=== PATIENT | female | born 1940 | race Caucasian/White ===

== ENCOUNTER → 2018-04-10 11:46 | Outpatient (REF) | payer MEDICARE, SELFPAY ==
[2018-04-10 11:51] LABS: Microscopic, Urine URINE MICROSCOPIC (MICROSCOPIC)
[2018-04-10 13:34] LABS: Appearance,Urine CLEAR (Clear); Bilirubin,Urine Negative (Negative); Blood, Urine Negative (Negative); Color,Urine YELLOW (Yellow); Glucose,Urine (UA) 3+ (Negative); Ketones,Urine Negative (Negative); Leukocyte Esterase,Urine Negative (Negative); Nitrate,Urine Negative (Negative); Protein,Urine Negative (Negative); Specific Gravity, Urine 1.025 (1.005-1.030)
[2018-04-10 14:27] LABS: Bacteria,Urine 4+ /lpf
== END ==
LOC: LAB.CARL 11:46
PROVIDERS: Visit Provider Physician Assistant
DX: R30.9 Painful micturition, unspecified (principal)
CPT/HCPCS: 81001; 87086; 87088; 87186

== ENCOUNTER → 2018-04-29 11:03 | Outpatient (CLI) | payer MEDICARE, SELFPAY ==
[2018-04-29 11:11] LABS: Microscopic, Urine URINE MICROSCOPIC (MICROSCOPIC)
[2018-04-29 14:17] LABS: Appearance,Urine CLEAR (Clear); Bilirubin,Urine Negative (Negative); Blood, Urine TRACE-I (Negative); Color,Urine YELLOW (Yellow); Glucose,Urine (UA) 2+ (Negative); Ketones,Urine Negative (Negative); Leukocyte Esterase,Urine Negative (Negative); Nitrate,Urine Negative (Negative); Protein,Urine Negative (Negative); Urobilinogen,Urine 0.2 EU/dl (0.2)
[2018-04-29 14:55] LABS: Bacteria,Urine Trace /lpf; RBC,Urine Occasional #/hpf (0-3); WBC,Urine Occasional #/hpf (0-3)
== END ==
PROVIDERS: Visit Provider Family Medicine
DX: N39.0 Urinary tract infection, site not specified (principal)
CPT/HCPCS: 81001

== ENCOUNTER → 2020-11-01 07:54 | Outpatient (CLI) | payer MEDICARE, MEDICAID, SELFPAY ==
[2020-11-01 14:30] LABS: Alanine Aminotransferase 16 U/L (12-78); Albumin Level 3.5 g/dl (3.5-5.0); Albumin/Globulin Ratio 1.3 (1.1-1.8); Alkaline Phosphatase 134 U/L (38-126); Anion Gap 8.8 mEq/L (5-15); Aspartate Amino Transferase 20 U/L (14-36); Bilirubin,Total 0.4 mg/dl (0.2-1.3); Blood Urea Nitrogen 26 mg/dl (7-17); Calcium 8.6 mg/dl (8.4-10.2); Carbon Dioxide 29 mmol/L (22.0-30.0); Chloride 104 mmol/L (98-107); Chol/HDL Ratio 2.6 (1-3.5); Cholesterol 161 mg/dl (140-200); Estimated Glomerular Filt Rate 69 ml/min (>60); GFR (African American) 84 ML/MIN (>60); Globulin 2.7 g/dL (1.3-3.2); Glucose 143 mg/dl (74-100); HDL Cholesterol 61 mg/dl (40-60); Potassium 3.8 mmoL/L (3.5-5.1); Sodium 138 mmol/L (136-145); Total Protein,Serum 6.2 g/dl (6.3-8.2); Triglycerides 125 mg/dl (30-150); VLDL Cholesterol 25 mg/dL (0-40)
[2020-11-01 14:41] LABS: Direct LDL Cholesterol 72.78 mg/dL (100-129)
[2020-11-01 15:00] LABS: Thyroid Stimulating Hormone 3.91 uIU/mL (0.465-4.68)
== END ==
PROVIDERS: Visit Provider Nurse Practitioner Family
DX: E11.65 Type 2 diabetes mellitus with hyperglycemia (principal); I10 Essential (primary) hypertension; E04.9 Nontoxic goiter, unspecified; E78.5 Hyperlipidemia, unspecified; Z79.4 Long term (current) use of insulin
CPT/HCPCS: 36415; 80053; 80061; 83036; 84443

== ENCOUNTER → 2020-11-17 07:12 | Outpatient (CLI) | payer MEDICARE, MEDICAID, SELFPAY ==
[2020-11-17 13:19] LABS: Chloride 104 mmol/L (98-107); Potassium 3.4 mmoL/L (3.5-5.1); Sodium 139 mmol/L (136-145)
[2020-11-17 13:22] LABS: Alanine Aminotransferase 14 U/L (12-78); Albumin Level 3.4 g/dl (3.5-5.0); Albumin/Globulin Ratio 1.3 (1.1-1.8); Alkaline Phosphatase 110 U/L (38-126); Anion Gap 8.4 mEq/L (5-15); Aspartate Amino Transferase 17 U/L (14-36); Bilirubin,Total 0.2 mg/dl (0.2-1.3); Blood Urea Nitrogen 28 mg/dl (7-17); Carbon Dioxide 30 mmol/L (22.0-30.0); Estimated Glomerular Filt Rate 61 ml/min (>60); GFR (African American) 73 ML/MIN (>60); Globulin 2.6 g/dL (1.3-3.2)
[2020-11-17 13:23] LABS: Calcium 9.1 mg/dl (8.4-10.2); Glucose 154 mg/dl (74-100)
== END ==
PROVIDERS: Visit Provider Nurse Practitioner Family
DX: E87.6 Hypokalemia (principal)
CPT/HCPCS: 36415; 80053

== ENCOUNTER → 2021-01-09 07:17 | Outpatient (CLI) | payer MEDICARE, MEDICAID, SELFPAY ==
[2021-01-09 14:45] LABS: Alanine Aminotransferase 15 U/L (12-78); Albumin Level 3.1 g/dl (3.5-5.0); Albumin/Globulin Ratio 1.2 (1.1-1.8); Alkaline Phosphatase 85 U/L (38-126); Anion Gap 8.6 mEq/L (5-15); Aspartate Amino Transferase 17 U/L (14-36); Bilirubin,Total 0.3 mg/dl (0.2-1.3); Blood Urea Nitrogen 19 mg/dl (7-17); Calcium 8.8 mg/dl (8.4-10.2); Carbon Dioxide 32 mmol/L (22.0-30.0); Chloride 103 mmol/L (98-107); Chol/HDL Ratio 2.4 (1-3.5); Cholesterol 133 mg/dl (140-200); Estimated Glomerular Filt Rate 69 ml/min (>60); GFR (African American) 84 ML/MIN (>60); Globulin 2.5 g/dL (1.3-3.2); Glucose 122 mg/dl (74-100); HDL Cholesterol 55 mg/dl (40-60); Potassium 3.6 mmoL/L (3.5-5.1); Sodium 140 mmol/L (136-145); Total Protein,Serum 5.6 g/dl (6.3-8.2); Triglycerides 101 mg/dl (30-150); VLDL Cholesterol 20 mg/dL (0-40)
[2021-01-09 14:46] LABS: Hemoglobin A1C 9.2 % (4.0-6.0)
[2021-01-09 14:56] LABS: Direct LDL Cholesterol 54.94 mg/dL (100-129)
== END ==
PROVIDERS: Visit Provider Nurse Practitioner Family
DX: I10 Essential (primary) hypertension (principal); E03.9 Hypothyroidism, unspecified; E11.65 Type 2 diabetes mellitus with hyperglycemia; Z79.4 Long term (current) use of insulin
CPT/HCPCS: 36415; 80053; 80061; 83036; 84443

== ENCOUNTER → 2021-04-10 07:03 | Outpatient (CLI) | payer MEDICARE, MEDICAID, SELFPAY ==
[2021-04-10 08:36] LABS: Basophils # 0.1 K/mm3 (0-0.2); Basophils % 0.7 % (0.1-2.0); Eosinophils # 0.3 K/mm3 (0.0-0.4); Eosinophils % 4.4 % (0.1-12.0); Hematocrit 32.8 % (37.0-47.0); Hemoglobin 10.4 g/dL (12.2-16.2); Lymphocytes # 1.6 K/mm3 (0.7-4.5); Lymphocytes % 22.4 % (10-50); Mean Corpuscular HGB Conc 31.8 g/dL (31.8-35.4); Mean Corpuscular Hemoglobin 28.5 pg (27.0-31.2); Mean Corpuscular Volume 89.6 fl (81-99); Mean Platelet Volume 8.1 fl (7.4-10.4); Monocytes # 0.7 K/mm3 (0.1-1.0); Monocytes % 9.5 % (1.7-9.3); Neutrophils # 4.6 K/mm3 (1.8-7.8); Neutrophils % 63.1 % (37.0-80.0); Platelet Count 184 K/mm3 (142-424); Red Blood Count 3.66 M/mm3 (4.20-5.40); Red Cell Distribution Width 14.2 % (11.5-17.5); White Blood Count 7.3 K/mm3 (4.8-10.8)
[2021-04-10 08:54] LABS: Hemoglobin A1C 8.2 % (4.0-6.0)
[2021-04-10 09:20] LABS: Chloride 104 mmol/L (98-107); Potassium 3.3 mmoL/L (3.5-5.1); Sodium 141 mmol/L (136-145)
[2021-04-10 09:22] LABS: Alanine Aminotransferase 9 U/L (12-78); Aspartate Amino Transferase 16 U/L (14-36); Blood Urea Nitrogen 14 mg/dl (7-17); Estimated Glomerular Filt Rate 81 ml/min (>60); GFR (African American) 98 ML/MIN (>60)
[2021-04-10 09:23] LABS: Albumin Level 3.1 g/dl (3.5-5.0); Albumin/Globulin Ratio 1.2 (1.1-1.8); Alkaline Phosphatase 85 U/L (38-126); Anion Gap 12.3 mEq/L (5-15); Carbon Dioxide 28 mmol/L (22.0-30.0); Chol/HDL Ratio 2.7 (1-3.5); Cholesterol 139 mg/dl (140-200); Globulin 2.6 g/dL (1.3-3.2); Glucose 98 mg/dl (74-100); HDL Cholesterol 52 mg/dl (40-60); Total Protein,Serum 5.7 g/dl (6.3-8.2); Triglycerides 117 mg/dl (30-150); VLDL Cholesterol 23 mg/dL (0-40)
[2021-04-10 09:29] LABS: Bilirubin,Total 0.1 mg/dl (0.2-1.3)
[2021-04-10 09:34] LABS: Direct LDL Cholesterol 57.59 mg/dL (100-129)
[2021-04-10 09:53] LABS: Thyroid Stimulating Hormone 3.45 uIU/mL (0.465-4.68)
== END ==
PROVIDERS: Visit Provider Nurse Practitioner Family
DX: I10 Essential (primary) hypertension (principal); E11.65 Type 2 diabetes mellitus with hyperglycemia; E03.9 Hypothyroidism, unspecified; E78.5 Hyperlipidemia, unspecified; Z79.4 Long term (current) use of insulin
CPT/HCPCS: 36415; 80053; 80061; 83036; 84443; 85025

== ENCOUNTER → 2021-06-27 07:24 | Outpatient (CLI) | payer MEDICARE, MEDICAID, SELFPAY ==
[2021-06-27 13:59] LABS: Alanine Aminotransferase 11 U/L (12-78); Albumin Level 3.3 g/dl (3.5-5.0); Albumin/Globulin Ratio 1.3 (1.1-1.8); Alkaline Phosphatase 73 U/L (38-126); Anion Gap 6.5 mEq/L (5-15); Aspartate Amino Transferase 16 U/L (14-36); Bilirubin,Total 0.2 mg/dl (0.2-1.3); Blood Urea Nitrogen 22 mg/dl (7-17); Calcium 9.2 mg/dl (8.4-10.2); Carbon Dioxide 31 mmol/L (22.0-30.0); Chloride 105 mmol/L (98-107); Cholesterol 127 mg/dl (140-200); Estimated Glomerular Filt Rate 60 ml/min (>60); GFR (African American) 73 ML/MIN (>60); Globulin 2.5 g/dL (1.3-3.2); Glucose 103 mg/dl (74-100); HDL Cholesterol 43 mg/dl (40-60); Potassium 3.5 mmoL/L (3.5-5.1); Sodium 139 mmol/L (136-145); Total Protein,Serum 5.8 g/dl (6.3-8.2); Triglycerides 121 mg/dl (30-150); VLDL Cholesterol 24 mg/dL (0-40)
[2021-06-27 14:03] LABS: Basophils # 0.1 K/mm3 (0-0.2); Basophils % 0.8 % (0.1-2.0); Eosinophils # 0.3 K/mm3 (0.0-0.4); Eosinophils % 5.2 % (0.1-12.0); Hematocrit 33.2 % (37.0-47.0); Hemoglobin 10.6 g/dL (12.2-16.2); Lymphocytes # 1.9 K/mm3 (0.7-4.5); Lymphocytes % 29.5 % (10-50); Mean Corpuscular Hemoglobin 28.3 pg (27.0-31.2); Mean Corpuscular Volume 88.4 fl (81-99); Mean Platelet Volume 8.9 fl (7.4-10.4); Monocytes # 0.6 K/mm3 (0.1-1.0); Monocytes % 9.7 % (1.7-9.3); Neutrophils # 3.5 K/mm3 (1.8-7.8); Neutrophils % 54.8 % (37.0-80.0); Platelet Count 201 K/mm3 (142-424); Red Blood Count 3.75 M/mm3 (4.20-5.40); Red Cell Distribution Width 15.2 % (11.5-17.5); White Blood Count 6.4 K/mm3 (4.8-10.8)
[2021-06-27 14:09] LABS: Direct LDL Cholesterol 60.41 mg/dL (100-129)
[2021-06-27 14:28] LABS: Thyroid Stimulating Hormone 2.44 uIU/mL (0.465-4.68)
[2021-06-27 14:40] LABS: Hemoglobin A1C 8.7 % (4.0-6.0)
== END ==
PROVIDERS: Visit Provider Nurse Practitioner Family
DX: I10 Essential (primary) hypertension (principal); Z79.899 Other long term (current) drug therapy
CPT/HCPCS: 36415; 80053; 80061; 83036; 84443; 85025

== ENCOUNTER 2024-02-05 10:12 | Inpatient (IN) | payer MEDICARE, MEDICAID, SELFPAY ==
[2024-02-05] VITALS (21 sets, daily range): BP systolic 91–131; BP diastolic 42–70; PULSE 91–920; RESP 14–24; TEMP 36.6–36.7; O2SAT 90–98; BMI 19.4; BMI 17.5
--- NOTE | 2024-02-05 10:14 | ECG_ITS ---
APPROVED REPORT Exam: Resting ECG HR:178 bpm ECG Measurements Heart Rate 178 AXES QRSd 85 QRS 28 QT 259 T 185 QTc 353 Conclusion ATRIAL FIBRILLATION WITH RAPID VENTRICULAR RESPONSE ST DEVIATION AND MODERATE T-WAVE ABNORMALITY, CONSIDER LATERAL ISCHEMIA [-0.1+ mV T-WAVE IN I/aVL/V5/V6] CRITICAL TEST RESULT Atrial fibrillation with rapid ventricular response versus supraventricular tachycardia, ischemia in the lateral and inferior leads, no ST elevation in anatomical contiguous leads. Electronically signed by : JUAN M JEFFERSON, 02/07/2024 23:27:14
--- NOTE | 2024-02-05 10:18 | HMH.EDGENADL ---
Discharge Plan Disposition Patient Disposition: Admitted Clinical Impressions Clinical Impression: Sepsis, Hyperosmolar hyperglycemic state (HHS) Discharge ED Provider: Aren Gomez Adult HPI General Chief complaint: Arrhythmia/Palpitations Stated complaint: Hypotension Time Seen by Provider: 02/05/24 10:17 History of Present Illness HPI narrative: Patient presents with altered mental status, hypoglycemia, presents from senior living. Additional history unable to be obtained due to reported history of dementia. No previous therapies prior to arrival. Medical history largely unknown at this time. Unknown if any changes in medications or new medications. Symptoms reportedly started within the past 24 hours. Please note that above description of symptoms, in this electronic medical record under categorization of recalled from ER triage doctor by RN are reflective of an initial nursing assessment, however, is not reflective of my full history and physical exam that was personally taken and clarified. Consequentially, this preceding description of symptoms, which may include the patient's categorized chief complaint in the EMR, do not reflect my personal clinical impression, and the ultimate description of history of present illness and patient stated complaints should be deferred to this section of the note. Unless stated otherwise or congruent with this section of the note, additional signs, symptoms, or incongruence should be interpreted as inaccurate with my clinical impression. Related Data Home Medications ?Medication ?Instructions ?Recorded ?Confirmed acetaminophen 500 mg tablet 500 mg PO Q4HP PRN Mild Pain 02/05/24 02/06/24 (Scale Score 1-4) amlodipine 10 mg tablet 10 mg PO DAILY 02/05/24 02/05/24 donepezil 5 mg tablet 5 mg PO HS 02/05/24 02/06/24 escitalopram oxalate 20 mg tablet 20 mg PO DAILY 02/05/24 02/05/24 famotidine 40 mg tablet 40 mg PO HS 02/05/24 02/05/24 furosemide 20 mg tablet 20 mg PO DAILY 02/05/24 02/05/24 levothyroxine 75 mcg tablet 75 mcg PO DAILY 02/05/24 02/05/24 linagliptin 5 mg tablet (Tradjenta) 5 mg PO DAILY 02/05/24 02/05/24 lisinopril 40 mg tablet 40 mg PO DAILY 02/05/24 02/05/24 loratadine 10 mg tablet 10 mg PO DAILY 02/05/24 02/05/24 memantine 10 mg tablet 10 mg PO BID 02/05/24 02/05/24 metformin 500 mg tablet 500 mg PO BID 02/05/24 02/05/24 metoprolol tartrate 25 mg tablet 25 mg PO BID 02/05/24 02/05/24 omeprazole 20 mg capsule,delayed 20 mg PO BID gerd 02/05/24 02/05/24 release quetiapine 25 mg tablet 12.5 mg PO BID 02/05/24 02/05/24 simvastatin 20 mg tablet 20 mg PO HS 02/05/24 02/05/24 Allergies Allergy/AdvReac Type Severity Reaction Status Date / Time No Known Allergies Allergy Unverified 06/04/17 14:59 [facility] Disclaimer: The information contained in this section may have been updated after the patient was seen, as this information can be updated by other users. Medical History (Updated 02/06/24 @ 13:38 by Radha Garrett RN) Hemorrhoids GERD (gastroesophageal reflux disease) Essential hypertension Major depressive disorder Hyperlipidemia Hypothyroidism Foot drop, right Chronic kidney disease Cerebrovascular disease Dementia DKA (diabetic ketoacidosis) Diabetes mellitus Hiatal hernia Acute kidney injury Sepsis Atrial fibrillation with RVR Non-STEMI (non-ST elevated myocardial infarction) Family History (Updated 02/05/24 @ 17:51 by Elvia Hendrickson RN) Other No significant family history Social History (Updated 02/05/24 @ 17:52 by Elvia Hendrickson RN) Smoking Status: Never smoker alcohol intake: never current occupational status: other Travel in the last 8 weeks: None ROS Obtained: Yes other As per HPI Physical Exam General General appearance: lethargic Comment: Ill-appearing Head Head exam: atraumatic and normocephalic Eye Eye exam: Present normal appearance Neck Neck exam: Present normal inspection Chest Chest inspection: Present normal inspection and symmetric chest wall rise Respiratory Respiratory exam: Present normal lung sounds bilaterally; Absent respiratory distress Cardiovascular Cardiovascular exam: Present tachycardia and irregular rhythm Abdominal Exam Abdominal exam: Present soft Neurological Exam Neurological exam: Present other (Disoriented, no focal neurologic deficit) Skin Skin exam: Present warm and dry Medical Decision Making Medical Records Medical records reviewed: Yes I reviewed the patient's medical records. Nitish Inquiry Pt receiving controlled substance: No Vital Signs: 02/05/24 10:13 02/05/24 11:05 02/05/24 11:30 Temperature 97.9 F Temperature Source Oral Pulse Rate 111 H Pulse Rate [Radial] 119 H Respiratory Rate 20 24 22 Blood Pressure 98/60 L 98/56 L Blood Pressure [Right Arm] 92/63 L Blood Pressure Mean 66 63 Blood Pressure Mean [Right Arm] 72 Blood Pressure Source Blood Pressure Source [Right Arm] Automatic Cuff Blood Pressure Position Blood Pressure Position [Right Arm] Supine 02 Sat by Pulse Oximetry 94 L 90 L Oxygen Delivery Method Room Air 02/05/24 12:00 02/05/24 12:30 02/05/24 13:21 Temperature Temperature Source Pulse Rate Pulse Rate [Radial] Respiratory Rate 22 22 16 Blood Pressure 110/58 L 100/59 L 98/58 L Blood Pressure [Right Arm] Blood Pressure Mean 74 Blood Pressure Mean [Right Arm] Blood Pressure Source Blood Pressure Source [Right Arm] Blood Pressure Position Blood Pressure Position [Right Arm] 02 Sat by Pulse Oximetry Oxygen Delivery Method 02/05/24 13:30 02/05/24 14:00 02/05/24 14:30 Temperature Temperature Source Pulse Rate Pulse Rate [Radial] Respiratory Rate 22 23 24 Blood Pressure 102/60 L 114/57 L 113/54 L Blood Pressure [Right Arm] Blood Pressure Mean Blood Pressure Mean [Right Arm] Blood Pressure Source Blood Pressure Source [Right Arm] Blood Pressure Position Blood Pressure Position [Right Arm] 02 Sat by Pulse Oximetry Oxygen Delivery Method 02/05/24 15:00 02/05/24 15:30 02/05/24 16:00 Temperature Temperature Source Pulse Rate Pulse Rate [Radial] Respiratory Rate 21 19 19 Blood Pressure 104/57 L 96/59 L 109/62 L Blood Pressure [Right Arm] Blood Pressure Mean Blood Pressure Mean [Right Arm] Blood Pressure Source Blood Pressure Source [Right Arm] Blood Pressure Position Blood Pressure Position [Right Arm] 02 Sat by Pulse Oximetry Oxygen Delivery Method 02/05/24 16:30 02/05/24 17:00 02/05/24 17:00 Temperature 98.0 F Temperature Source Axillary Pulse Rate Pulse Rate [Radial] 95 H Respiratory Rate 17 22 Blood Pressure 99/57 L Blood Pressure [Right Arm] 119/70 Blood Pressure Mean Blood Pressure Mean [Right Arm] 86 Blood Pressure Source Blood Pressure Source [Right Arm] Automatic Cuff Blood Pressure Position Blood Pressure Position [Right Arm] Supine 02 Sat by Pulse Oximetry 94 L Oxygen Delivery Method Room Air Room Air 08/21/24 17:01 Temperature 97.9 F Temperature Source Oral Pulse Rate 103 H Pulse Rate [Radial] Respiratory Rate 20 Blood Pressure 99/57 L Blood Pressure [Right Arm] Blood Pressure Mean Blood Pressure Mean [Right Arm] Blood Pressure Source Automatic Cuff Blood Pressure Source [Right Arm] Blood Pressure Position Supine Blood Pressure Position [Right Arm] 02 Sat by Pulse Oximetry Oxygen Delivery Method Room Air Lab Data Lab Results 02/05/24 10:28: WBC 16.7 H, RBC 4.84, Hgb 14.5, Hct 49.0 H, MCV 101.2 H, MCH 29.9, MCHC 29.6 L, RDW 15.0, Plt Count 287, MPV 8.9, Neut % (Auto) 82.5 H, Lymph % (Auto) 9.7 L, [place] % (Auto) 7.0, Eos % (Auto) 0.2, Baso % (Auto) 0.6, Neut # (Auto) 13.7 H, Lymph # (Auto) 1.6, [place] # (Auto) 1.2 H, Eos # (Auto) 0.0, Baso # (Auto) 0.1, Total Counted 100, Neutrophils % (Manual) 79 H, Lymphocytes % (Manual) 10, Monocytes % (Manual) 9, Eosinophils % (Manual) 1, Basophils % (Manual) 1.0, Platelet Estimate Normal, RBC Morphology Normal, PT 10.9, INR 0.97, Sodium 150 H, Potassium 3.8, Chloride 110 H, Carbon Dioxide 24, Anion Gap 19.8 H, BUN 71 H, Creatinine 3.00 H, Estimated Creat Clear 10, Estimated GFR 15 L*, Est GFR ( Amer) 18 L*, Glucose 858 H*, Calcium 9.2, Phosphorus 7.2 H, Magnesium 2.2, Total Bilirubin 0.8, AST 24, ALT 27, Alkaline Phosphatase 106, Troponin I 0.20 H, NT-Pro-B Natriuret Pep 1170 H, Total Protein 7.3 D, Albumin 4.3, Globulin 3.0, Albumin/Globulin Ratio 1.4, TSH 0.46 L, Free T4 2.05, Acetone Level Small 02/05/24 10:36: VBG pH 7.34, VBG pCO2 46.0, VBG pO2 79.0 H, VBG HCO3 24.5, VBG Total CO2 25.9, VBG O2 Saturation 93.9 H, VBG Base Excess -1.2, VBG Lactic Acid 4.1 H 02/05/24 13:29: Total Creatine Kinase 81, Troponin I 0.69 H 02/05/24 15:07: Lactate 1.5 02/05/24 15:14: Urine Color Yellow, Urine Appearance Clear, Urine pH 5.5, Ur Specific [place] 1.020, Urine Protein Negative, Urine Glucose (UA) 3+, Urine Ketones Trace, Urine Blood 1+, Urine Nitrate Negative, Urine Bilirubin Negative, Urine Urobilinogen 0.2, Ur Leukocyte Esterase Negative, Urine RBC 20-50, Urine WBC 50-100, Ur Squamous Epith Cells 20-50, Urine Bacteria 3+ 02/05/24 15:32: Sodium 151 H*, Potassium 3.5, Chloride 115 H, Carbon Dioxide 25, Anion Gap 14.5, BUN 74 H, Creatinine 2.90 H, Estimated Creat Clear 11, Estimated GFR 16 L*, Est GFR ( Amer) 19 L*, Glucose 719 H*, Calcium 8.7 02/05/24 17:01: POC Glucose 543 H* 02/06/24 05:18 02/06/24 19:39 Orders (Tests/Meds): ED MEDICATIONS Generic Name Dose Route Start Last Admin Trade Name Freq PRN Reason Stop Dose Admin Acetaminophen 650 mg 02/05/24 18:02 Acetaminophen 325mg Tab PO 03/06/24 18:01 Q6HP PRN Fever or Mild Pain (1-3) Acetaminophen 500 mg 02/06/24 13:02 Acetaminophen 500mg Tab PO 03/07/24 13:01 Q4HP PRN Mild Pain (Scale Score 1-4) Albuterol/Ipratropium 3 ml 02/05/24 18:02 Ipratropium/Albuterol 3 Ml Neb IH 03/06/24 18:01 Q6HP PRN Shortness Of Breath Amlodipine Besylate 10 mg 02/06/24 13:15 02/06/24 14:50 Amlodipine 10mg Tablet PO 03/07/24 13:14 Not Given DAILY ADAM Aspirin 81 mg 02/06/24 09:00 02/06/24 09:04 Aspirin Ec 81mg Tablet PO 03/07/24 08:59 81 mg DAILY ADAM Administration Atorvastatin Calcium 40 mg 02/05/24 21:00 02/05/24 20:11 Atorvastatin 40mg Tablet PO 03/06/24 20:59 Not Given HS ADAM Citalopram Hydrobromide 40 mg 02/06/24 13:15 02/06/24 14:42 Citalopram 40mg Tablet PO 03/07/24 13:14 40 mg DAILY ADAM Administration Donepezil HCl 5 mg 02/06/24 21:00 Donepezil 5mg Tab PO 03/07/24 20:59 HS ADAM Enoxaparin Sodium 45 mg 02/05/24 21:00 02/05/24 20:14 Enoxaparin 60mg/0.6ml Syringe SQ 03/06/24 20:59 45 mg Q24H ADAM Administration Famotidine 20 mg 02/06/24 21:00 Famotidine 20mg Tablet PO 03/07/24 20:59 HS ADAM Furosemide 20 mg 02/06/24 13:15 02/06/24 14:42 Furosemide 20mg Tablet PO 03/07/24 13:14 20 mg DAILY ADAM Administration Meropenem 1 gm/ Sodium 100 mls @ 100 mls/hr 02/05/24 18:30 02/06/24 17:27 Chloride IV 02/15/24 18:29 100 mls/hr Q8H ADAM Administration Insulin Glargine 10 unit 02/06/24 21:00 Insulin Glargine 100 Units/Ml 3ml Flexpen SQ 03/07/24 20:59 HS ADAM Insulin Glargine 10 unit 02/07/24 09:00 Insulin Glargine 100 Units/Ml 3ml Flexpen SQ 03/08/24 08:59 DAILY ADAM Insulin Human Lispro 0 unit 02/06/24 16:30 02/06/24 16:26 Humalog 100 Units/Ml 10ml Vial (Ssi) SQ 03/07/24 16:29 4 unit ACHS ADAM Administration Protocol Levothyroxine Sodium 75 mcg 02/06/24 13:15 02/06/24 14:43 Levothyroxine 75mcg (0.075mg) Tab PO 03/07/24 13:14 75 mcg DAILYDM ADAM Administration Lisinopril 40 mg 02/07/24 09:00 Lisinopril 20mg Tablet PO 03/08/24 08:59 DAILY ADAM Loratadine 10 mg 02/06/24 13:15 02/06/24 14:43 Loratadine 10mg Tablet PO 03/07/24 13:14 10 mg DAILY ADAM Administration Lorazepam 1 mg 02/05/24 18:02 Lorazepam 2mg/Ml Vial IV 03/06/24 18:01 Q4HP PRN Agitation Magnesium Hydroxide 30 ml 02/05/24 18:02 Milk Of Magnesia 30ml Udc PO 03/06/24 18:01 BIDP PRN Constipation Memantine 10 mg 02/06/24 13:15 02/06/24 14:43 Memantine 10mg Tablet PO 03/07/24 13:14 10 mg BID ADAM Administration Metoprolol Tartrate 25 mg 02/06/24 13:15 02/06/24 14:43 Metoprolol Tartrate 25mg Tablet PO 03/07/24 13:14 25 mg BID ADAM Administration Morphine Sulfate 2 mg 02/05/24 18:02 Morphine 2mg/Ml Syringe IV 03/06/24 18:01 Q4HP PRN Severe Pain (7-10) Ondansetron HCl 4 mg 02/05/24 18:02 Ondansetron 4mg/2ml Vial IV 03/06/24 18:01 Q6HP PRN Nausea Pantoprazole Sodium 40 mg 02/06/24 13:15 02/06/24 14:43 Pantoprazole 40mg Tablet PO 03/07/24 13:14 40 mg BID ADAM Administration Pravastatin Sodium 40 mg 02/06/24 21:00 Pravastatin 40mg Tab PO 03/07/24 20:59 HS ADAM Quetiapine Fumarate 12.5 mg 02/06/24 13:15 02/06/24 14:45 Quetiapine 25mg Tablet PO 03/07/24 13:14 12.5 mg BID ADAM Administration Sodium Chloride 10 ml 02/05/24 17:59 Sodium Chloride 0.9% 10ml Flush Syringe IV 03/06/24 17:58 NEEDED PRN Maintain IV Site Sodium Chloride 10 ml 02/05/24 22:34 Sodium Chloride 0.9% 10ml Flush Syringe IV 03/06/24 22:33 NEEDED PRN Maintain IV Site Discontinued Medications Generic Name Dose Route Start Last Admin Trade Name Freq PRN Reason Stop Dose Admin Aspirin 300 mg 02/05/24 14:31 02/05/24 16:39 Aspirin 300mg Suppository RC 08/21/24 14:32 300 mg ONCE ONE Administration Lactated Ringer's 1,350 mls @ 675 mls/hr 02/05/24 10:55 02/05/24 10:58 Lactated Ringer's 1000 Ml Bag 30 ml/kg infuse over 2 hr (1350 ml) 02/05/24 12:54 675 mls/hr IV Administration .Q2H ONE Vancomycin HCl 750 mg/ Sodium 250 mls @ 125 mls/hr 02/05/24 11:21 02/05/24 13:06 Chloride IV 02/05/24 11:22 125 mls/hr ONCE ONE Administration Piperacillin Sod/Tazobactam 100 mls @ 200 mls/hr 02/05/24 11:21 02/05/24 11:45 Sod 4.5 gm/ Sodium Chloride IV 02/05/24 11:50 200 mls/hr ONCE ONE Administration Insulin Human Regular 100 unit 101 mls @ 4.553 mls/hr 02/05/24 15:15 02/06/24 00:21 / Sodium Chloride IV 03/06/24 15:14 0 units/kg/hr .[id number] ADAM 0 mls/hr Titration Protocol 0.1 UNITS/KG/HR Lactated Ringer's 1,000 mls @ 150 mls/hr 02/05/24 18:00 02/05/24 18:24 Lactated Ringer's 1000 Ml Bag IV 02/06/24 20:39 150 mls/hr .[id number] ADAM Administration Potassium Chloride/Water 100 mls @ 50 mls/hr 02/05/24 22:00 02/06/24 02:58 Potassium Chloride 20meq/100ml Ivpb IV 02/06/24 03:59 50 mls/hr Q2H ADAM Administration Magnesium Sulfate 2 gm in 50 mls @ 25 mls/hr 02/05/24 22:00 02/05/24 22:04 Magnesium Sulfate 2gm/50ml Premix IV 03/06/24 21:59 25 mls/hr ONCE ADAM Administration Sodium Chloride 1,000 mls @ 75 mls/hr 02/05/24 22:45 02/06/24 18:35 Sod Chlor 0.45% 1000ml Bag IV 03/06/24 22:44 150 mls/hr .[id number] ADAM Administration Insulin Glargine 10 unit 02/06/24 13:04 02/06/24 14:45 Insulin Glargine 100 Units/Ml 10ml Vial SQ 02/06/24 13:05 10 unit ONCE ONE Administration Metoprolol Tartrate 12.5 mg 02/05/24 23:35 02/05/24 23:53 Metoprolol Tartrate 25mg Tablet PO 02/05/24 23:36 12.5 mg ONCE ONE Administration Metoprolol Tartrate 2.5 mg 02/06/24 01:00 02/06/24 00:45 Metoprolol Tartrate 5mg/5ml Vial IV 02/06/24 01:01 2.5 mg ONCE ONE Administration ORDERS Category Date Time Status CT abdomen pelvis wo con Stat Cat Scan 02/05/24 11:[address] chest wo con Stat Cat Scan 02/05/24 11:[address] head/brain wo con Stat Cat Scan 02/05/24 11:15 Completed Acetone, Serum (Rapid) Stat Lab 02/05/24 10:28 Completed BMP [Basic Metabolic Panel] Stat Lab 02/05/24 15:32 Completed BNP [NT Pro Brain Natriuretic Pep.] Stat Lab 02/05/24 10:28 Completed Basic Metabolic Panel AMLAB Lab 02/06/24 05:18 Completed CBC w/Auto Diff [Complete Blood Count Auto Diff] Stat Lab 02/05/24 10:28 Completed CK [Creatine Kinase] Stat Lab 02/05/24 13:29 Completed CMP [Comprehensive Metabolic Panel] Stat Lab 02/05/24 10:28 Completed Complete Blood Count Auto Diff AMLAB Lab 02/06/24 05:18 Completed Free T4 (Free Thyroxine) Stat Lab 02/05/24 10:28 Completed Lactic Acid AMLAB Lab 02/06/24 05:18 Completed Lactic Acid Follow Up (RFLX 1) Stat Lab 02/05/24 15:07 Completed Lipid Panel AMLAB Lab 02/06/24 05:18 Completed Liver Panel AMLAB Lab 02/06/24 05:18 Completed MAG [Magnesium] Stat Lab 02/05/24 10:28 Completed Osmolality Stat Lab 02/05/24 13:29 Received PHOS [Phosphorous] Stat Lab 02/05/24 10:28 Completed PT INR [Prothrombin Time INR] Stat Lab 02/05/24 10:28 Completed TSH [Thyroid Stimulating Hormone] Stat Lab 02/05/24 10:28 Completed Troponin I Q3H Lab 02/05/24 10:28 Completed Troponin I Q3H Lab 02/05/24 13:29 Completed Urinalysis and Microscopic Stat Lab 02/05/24 15:14 Completed Blood Culture Stat Micro 02/05/24 10:50 Results Urine Culture Stat Micro 02/05/24 15:14 Received VBG [Venous Blood Gas] Stat RT 02/05/24 10:36 Completed CA echo doppler complete Stat Y 02/05/24 14:55 Completed Medical Decision Narrative: Patient with history and exam per above presenting for evaluation of altered mental status, hyperglycemia Diagnoses considered include DKA, HHS, ACS, intracranial hemorrhage, electrolyte abnormality, among others ED workup and treatment included: ED MEDICATIONS Generic Name Dose Route Start Last Admin Trade Name Freq PRN Reason Stop Dose Admin Acetaminophen 650 mg 02/05/24 18:02 Acetaminophen 325mg Tab PO 03/06/24 18:01 Q6HP PRN Fever or Mild Pain (1-3) Acetaminophen 500 mg 02/06/24 13:02 Acetaminophen 500mg Tab PO 03/07/24 13:01 Q4HP PRN Mild Pain (Scale Score 1-4) Albuterol/Ipratropium 3 ml 02/05/24 18:02 Ipratropium/Albuterol 3 Ml Neb IH 03/06/24 18:01 Q6HP PRN Shortness Of Breath Amlodipine Besylate 10 mg 02/06/24 13:15 02/06/24 14:50 Amlodipine 10mg Tablet PO 03/07/24 13:14 Not Given DAILY ADAM Aspirin 81 mg 02/06/24 09:00 02/06/24 09:04 Aspirin Ec 81mg Tablet PO 03/07/24 08:59 81 mg DAILY ADAM Administration Atorvastatin Calcium 40 mg 02/05/24 21:00 02/05/24 20:11 Atorvastatin 40mg Tablet PO 03/06/24 20:59 Not Given HS ADAM Citalopram Hydrobromide 40 mg 02/06/24 13:15 02/06/24 14:42 Citalopram 40mg Tablet PO 03/07/24 13:14 40 mg DAILY ADAM Administration Donepezil HCl 5 mg 02/06/24 21:00 Donepezil 5mg Tab PO 03/07/24 20:59 HS ADAM Enoxaparin Sodium 45 mg 08/21/24 21:00 02/05/24 20:14 Enoxaparin 60mg/0.6ml Syringe SQ 03/06/24 20:59 45 mg Q24H ADAM Administration Famotidine 20 mg 02/06/24 21:00 Famotidine 20mg Tablet PO 03/07/24 20:59 HS ADAM Furosemide 20 mg 02/06/24 13:15 02/06/24 14:42 Furosemide 20mg Tablet PO 03/07/24 13:14 20 mg DAILY ADAM Administration Meropenem 1 gm/ Sodium 100 mls @ 100 mls/hr 02/05/24 18:30 02/06/24 17:27 Chloride IV 02/15/24 18:29 100 mls/hr Q8H ADAM Administration Insulin Glargine 10 unit 02/06/24 21:00 Insulin Glargine 100 Units/Ml 3ml Flexpen SQ 03/07/24 20:59 HS ADAM Insulin Glargine 10 unit 02/07/24 09:00 Insulin Glargine 100 Units/Ml 3ml Flexpen SQ 03/08/24 08:59 DAILY ADAM Insulin Human Lispro 0 unit 02/06/24 16:30 02/06/24 16:26 Humalog 100 Units/Ml 10ml Vial (Ssi) SQ 03/07/24 16:29 4 unit ACHS ADAM Administration Protocol Levothyroxine Sodium 75 mcg 02/06/24 13:15 02/06/24 14:43 Levothyroxine 75mcg (0.075mg) Tab PO 03/07/24 13:14 75 mcg DAILYDM ADAM Administration Lisinopril 40 mg 02/07/24 09:00 Lisinopril 20mg Tablet PO 03/08/24 08:59 DAILY ADAM Loratadine 10 mg 02/06/24 13:15 02/06/24 14:43 Loratadine 10mg Tablet PO 03/07/24 13:14 10 mg DAILY ADAM Administration Lorazepam 1 mg 02/05/24 18:02 Lorazepam 2mg/Ml Vial IV 03/06/24 18:01 Q4HP PRN Agitation Magnesium Hydroxide 30 ml 02/05/24 18:02 Milk Of Magnesia 30ml Udc PO 03/06/24 18:01 BIDP PRN Constipation Memantine 10 mg 02/06/24 13:15 02/06/24 14:43 Memantine 10mg Tablet PO 03/07/24 13:14 10 mg BID ADAM Administration Metoprolol Tartrate 25 mg 02/06/24 13:15 02/06/24 14:43 Metoprolol Tartrate 25mg Tablet PO 03/07/24 13:14 25 mg BID ADAM Administration Morphine Sulfate 2 mg 02/05/24 18:02 Morphine 2mg/Ml Syringe IV 03/06/24 18:01 Q4HP PRN Severe Pain (7-10) Ondansetron HCl 4 mg 02/05/24 18:02 Ondansetron 4mg/2ml Vial IV 03/06/24 18:01 Q6HP PRN Nausea Pantoprazole Sodium 40 mg 02/06/24 13:15 02/06/24 14:43 Pantoprazole 40mg Tablet PO 03/07/24 13:14 40 mg BID ADAM Administration Pravastatin Sodium 40 mg 02/06/24 21:00 Pravastatin 40mg Tab PO 03/07/24 20:59 HS ADAM Quetiapine Fumarate 12.5 mg 02/06/24 13:15 02/06/24 14:45 Quetiapine 25mg Tablet PO 03/07/24 13:14 12.5 mg BID ADAM Administration Sodium Chloride 10 ml 02/05/24 17:59 Sodium Chloride 0.9% 10ml Flush Syringe IV 03/06/24 17:58 NEEDED PRN Maintain IV Site Sodium Chloride 10 ml 02/05/24 22:34 Sodium Chloride 0.9% 10ml Flush Syringe IV 03/06/24 22:33 NEEDED PRN Maintain IV Site Discontinued Medications Generic Name Dose Route Start Last Admin Trade Name Kemq PRN Reason Stop Dose Admin Aspirin 300 mg 02/05/24 14:31 02/05/24 16:39 Aspirin 300mg Suppository RC 02/05/24 14:32 300 mg ONCE ONE Administration Lactated Ringer's 1,350 mls @ 675 mls/hr 02/05/24 10:55 02/05/24 10:58 Lactated Ringer's 1000 Ml Bag 30 ml/kg infuse over 2 hr (1350 ml) 02/05/24 12:54 675 mls/hr IV Administration .Q2H ONE Vancomycin HCl 750 mg/ Sodium 250 mls @ 125 mls/hr 02/05/24 11:21 02/05/24 13:06 Chloride IV 02/05/24 11:22 125 mls/hr ONCE ONE Administration Piperacillin Sod/Tazobactam 100 mls @ 200 mls/hr 02/05/24 11:21 02/05/24 11:45 Sod 4.5 gm/ Sodium Chloride IV 02/05/24 11:50 200 mls/hr ONCE ONE Administration Insulin Human Regular 100 unit 101 mls @ 4.553 mls/hr 02/05/24 15:15 02/06/24 00:21 / Sodium Chloride IV 03/06/24 15:14 0 units/kg/hr .[id number] ADAM 0 mls/hr Titration Protocol 0.1 UNITS/KG/HR Lactated Ringer's 1,000 mls @ 150 mls/hr 02/05/24 18:00 02/05/24 18:24 Lactated Ringer's 1000 Ml Bag IV 02/06/24 20:39 150 mls/hr .[id number] ADAM Administration Potassium Chloride/Water 100 mls @ 50 mls/hr 02/05/24 22:00 02/06/24 02:58 Potassium Chloride 20meq/100ml Ivpb IV 02/06/24 03:59 50 mls/hr Q2H ADAM Administration Magnesium Sulfate 2 gm in 50 mls @ 25 mls/hr 02/05/24 22:00 02/05/24 22:04 Magnesium Sulfate 2gm/50ml Premix IV 03/06/24 21:59 25 mls/hr ONCE ADAM Administration Sodium Chloride 1,000 mls @ 75 mls/hr 02/05/24 22:45 02/06/24 18:35 Sod Chlor 0.45% 1000ml Bag IV 03/06/24 22:44 150 mls/hr .[id number] ADAM Administration Insulin Glargine 10 unit 02/06/24 13:04 02/06/24 14:45 Insulin Glargine 100 Units/Ml 10ml Vial SQ 02/06/24 13:05 10 unit ONCE ONE Administration Metoprolol Tartrate 12.5 mg 02/05/24 23:35 02/05/24 23:53 Metoprolol Tartrate 25mg Tablet PO 02/05/24 23:36 12.5 mg ONCE ONE Administration Metoprolol Tartrate 2.5 mg 02/06/24 01:00 02/06/24 00:45 Metoprolol Tartrate 5mg/5ml Vial IV 02/06/24 01:01 2.5 mg ONCE ONE Administration ORDERS Category Date Time Status CT abdomen pelvis wo con Stat Cat Scan 02/05/24 11:[address] chest wo con Stat Cat Scan 02/05/24 11:[address] head/brain wo con Stat Cat Scan 02/05/24 11:15 Completed Acetone, Serum (Rapid) Stat Lab 02/05/24 10:28 Completed BMP [Basic Metabolic Panel] Stat Lab 02/05/24 15:32 Completed BNP [NT Pro Brain Natriuretic Pep.] Stat Lab 02/05/24 10:28 Completed Basic Metabolic Panel AMLAB Lab 02/06/24 05:18 Completed CBC w/Auto Diff [Complete Blood Count Auto Diff] Stat Lab 02/05/24 10:28 Completed CK [Creatine Kinase] Stat Lab 02/05/24 13:29 Completed CMP [Comprehensive Metabolic Panel] Stat Lab 02/05/24 10:28 Completed Complete Blood Count Auto Diff AMLAB Lab 02/06/24 05:18 Completed Free T4 (Free Thyroxine) Stat Lab 02/05/24 10:28 Completed Lactic Acid AMLAB Lab 02/06/24 05:18 Completed Lactic Acid Follow Up (RFLX 1) Stat Lab 02/05/24 15:07 Completed Lipid Panel AMLAB Lab 02/06/24 05:18 Completed Liver Panel AMLAB Lab 02/06/24 05:18 Completed MAG [Magnesium] Stat Lab 02/05/24 10:28 Completed Osmolality Stat Lab 02/05/24 13:29 Received PHOS [Phosphorous] Stat Lab 02/05/24 10:28 Completed PT INR [Prothrombin Time INR] Stat Lab 02/05/24 10:28 Completed TSH [Thyroid Stimulating Hormone] Stat Lab 02/05/24 10:28 Completed Troponin I Q3H Lab 02/05/24 10:28 Completed Troponin I Q3H Lab 02/05/24 13:29 Completed Urinalysis and Microscopic Stat Lab 02/05/24 15:14 Completed Blood Culture Stat Micro 02/05/24 10:50 Results Urine Culture Stat Micro 02/05/24 15:14 Received VBG [Venous Blood Gas] Stat RT 02/05/24 10:36 Completed CA echo doppler complete Stat Y 02/05/24 14:55 Completed Labs were independently interpreted by me, significant for leukocytosis, elevated troponins with uptrending labs, hyperglycemia, anion gap within normal limits, consistent with HHS Imaging was independently visualized and interpreted by me, significant for large esophageal hernia, no acute surgical pathology Please refer to radiology report for full details. My clinical impression at this time is most consistent with HHS given uptrending troponins cardiology was consulted in the emergency department and evaluated patient and will perform radiology performed echo on inpatient basis. In the interim, patient will be admitted to hospital medicine service. Critical Care Critical Care Time Critical Care Time: No
[2024-02-05 10:42] LABS: Basophils # 0.1 K/mm3 (0-0.2); Basophils % 0.6 % (0.1-2.0); Eosinophils % 0.2 % (0.1-12.0); Hemoglobin 14.5 g/dL (12.2-16.2); Lymphocytes # 1.6 K/mm3 (0.7-4.5); Lymphocytes % 9.7 % (10-50); Mean Corpuscular HGB Conc 29.6 g/dL (31.8-35.4); Mean Corpuscular Hemoglobin 29.9 pg (27.0-31.2); Mean Corpuscular Volume 101.2 fl (81-99); Mean Platelet Volume 8.9 fl (7.4-10.4); Monocytes # 1.2 K/mm3 (0.1-1.0); Neutrophils # 13.7 K/mm3 (1.8-7.8); Neutrophils % 82.5 % (37.0-80.0); Platelet Count 287 K/mm3 (142-424); Red Blood Count 4.84 M/mm3 (4.20-5.40); White Blood Count 16.7 K/mm3 (4.8-10.8)
[2024-02-05 10:43] LABS: Albumin Level 4.3 g/dl (3.5-5.0); Chloride 110 mmol/L (98-107)
[2024-02-05 10:44] LABS: Potassium 3.8 mmoL/L (3.5-5.1)
[2024-02-05 10:45] LABS: VBG Base Excess -1.2 mmol/L (-2.4-2.3); VBG HCO3 24.5 mmol/L (23-30); VBG Oxygen Saturation 93.9 % (50-70); VBG PH 7.34 mmol/L (7.31-7.41); VBG Total CO2 25.9 mmol/L (23-27)
[2024-02-05 10:46] LABS: Alanine Aminotransferase 27 U/L (12-78); Aspartate Amino Transferase 24 U/L (14-36); Blood Urea Nitrogen 71 mg/dl (7-17); Creatinine Clearance Estimated 10 mL/min (50-200); Estimated Glomerular Filt Rate 15 ml/min (>60); GFR (African American) 18 ML/MIN (>60)
[2024-02-05 10:47] LABS: Lactate Venous 4.1 mmol/L (0.4-2.0)
[2024-02-05 10:47] LABS: Albumin/Globulin Ratio 1.4 (1.1-1.8); Alkaline Phosphatase 106 U/L (38-126); Anion Gap 19.8 mEq/L (5-15); Bilirubin,Total 0.8 mg/dl (0.2-1.3); Calcium 9.2 mg/dl (8.4-10.2); Carbon Dioxide 24 mmol/L (22.0-30.0); INR 0.97 (0.9-1.1); Magnesium 2.2 mg/dl (1.6-2.3); Prothrombin Time 10.9 seconds (10.1-12.5); Total Protein,Serum 7.3 g/dl (6.3-8.2)
[2024-02-05 10:52] LABS: Sodium 150 mmol/L (136-145)
[2024-02-05 10:56] LABS: Glucose 858 mg/dl (74-100)
--- NOTE | 2024-02-05 10:56 | PC.NURSE ---
Dr. Gomez notified of Sodium level of 150.
[2024-02-05] MEDS: LACTATED RINGERS 675 ML IV (10:58)
[2024-02-05 11:02] LABS: Acetone, Serum (Rapid) Small (None Detect)
[2024-02-05 11:06] LABS: Phosphorous 7.2 mg/dl (2.5-4.5)
--- NOTE | 2024-02-05 11:15 | CT_ITS ---
FINAL REPORT TECHNIQUE: Axial CT images were performed through the head. Coronal reformatted images were submitted. This study was performed with techniques to keep radiation doses as low as reasonably achievable (ALARA). Individualized dose reduction techniques using automated exposure control or adjustment of mA and/or kV according to the patient's size were employed. CLINICAL HISTORY: ams limited hx FINDINGS: There is moderate atrophy with proportional ventriculomegaly. There is no evidence of hemorrhage. There is no mass or edema identified. There is no abnormal extra-axial fluid seen. The sinuses are well aerated. IMPRESSION: Atrophy without acute intracranial process. Reviewed, Interpreted and Dictated by Dick Siu MD Transcribed by Corine Guerra Authenticated and [facility]
[2024-02-05 11:18] LABS: Thyroid Stimulating Hormone 0.46 uIU/mL (0.465-4.68)
--- NOTE | 2024-02-05 11:29 | CT_ITS ---
FINAL REPORT TECHNIQUE: Axial images were obtained from the lung apex to the mid abdomen by computed tomography. Coronal reformatted images were obtained. This study was performed with techniques to keep radiation doses as low as reasonably achievable, (ALARA). Individualized dose reduction techniques using automated exposure control or adjustment of mA and/or kV according to the patient''s size were employed. CLINICAL HISTORY: ams, sepsis, hhs limited hx COMPARISON: None FINDINGS: The patient is kyphotic, best seen on the sagittal reconstruction images. There is no axillary adenopathy. There is no hilar or mediastinal adenopathy. Heart size is normal. There are dense vascular calcifications of the aortic arch. Large hiatal hernia is noted with sliding and paraesophageal component. There is no pericardial or pleural effusion. No suspicious infiltrate or nodule is identified. IMPRESSION: Large sliding and paraesophageal hernia. Reviewed, Interpreted and Dictated by Dick Siu MD Transcribed by Sdae Martinez Authenticated and . [facility]
--- NOTE | 2024-02-05 11:29 | CT_ITS ---
FINAL REPORT TECHNIQUE: Axial images through the abdomen and pelvis were performed without contrast. This study was performed with techniques to keep radiation doses as low as reasonably achievable, (ALARA). Individualized dose reduction techniques using automated exposure control or adjustment of mA and/or kV according to the patient's size were employed. CLINICAL HISTORY: ams, sepsis COMPARISON: None FINDINGS: Abdomen: The liver parenchyma is homogeneous. The gallbladder is present. The spleen and pancreas are unremarkable. Periampullary duodenal diverticulum is noted. There is a left adrenal adenoma measuring 11 mm. There is a 2 cm low-attenuation focus in the periphery of the left kidney demonstrating mean attenuation value of 17 Hounsfield units. This focus is well-circumscribed. Pelvis: The uterus is present and lies eccentric to the right. A Estrada catheter is present within a decompressed urinary bladder. The appendix is not visualized. There is no pelvic mass or inflammation. IMPRESSION: 2 cm focus in the right kidney probably related to complex benign cyst. Pre and post infusion evaluation could better characterize. Periampullary duodenal diverticulum. Reviewed, Interpreted and Dictated by Dick Siu MD Transcribed by Sade Martinez Authenticated and [facility]
[2024-02-05] MEDS: PIPERACILLIN/TAZO 4.5 GM in 0.9 % SODIUM CHLORIDE 100 ML IV (11:45)
[2024-02-05 11:49] LABS: NT Pro Brain Natriuretic Pep. 1170 pg/mL (0-450)
[2024-02-05 11:53] LABS: MANUAL DIFFERENTIAL MANUAL DIFFERENTIAL (MANUAL DIFF)
[2024-02-05 12:12] LABS: Free T4 (Free Thyroxine) 2.05 ng/dl (0.78-2.19)
[2024-02-05] MEDS: VANCOMYCIN HCL 750 MG in 0.9 % SODIUM CHLORIDE 250 ML 125 MG IV (13:06)
[2024-02-05 13:13] LABS: Eosinophils % 1 % (0-3); Lymphocytes % 10 % (10-50); Monocytes % 9 % (2-9); Neutrophils % 79 % (42-76); Total Cells Counted 100
[2024-02-05 13:14] LABS: Platelet Estimate Normal; RBC Morphology Normal
[2024-02-05 14:03] LABS: Troponin I 0.69 ng/ml (0.00-0.034)
--- NOTE | 2024-02-05 14:15 | PC.NURSE ---
aware of trop 0.69
--- NOTE | 2024-02-05 14:21 | ECG_ITS ---
APPROVED REPORT Exam: Resting ECG HR:101 bpm ECG Measurements Heart Rate 101 AXES MI 98 P 47 QRSd 74 QRS -34 QT 359 T 116 QTc 417 Conclusion LEFT AXIS DEVIATION [QRS AXIS < -30] POSSIBLE ANTERIOR MYOCARDIAL INFARCTION , PROBABLY OLD [30 ms Q WAVE IN V3/V4, OR R < 0.2 mV IN V4] MODERATE T-WAVE ABNORMALITY, CONSIDER LATERAL ISCHEMIA [-0.1+ mV T-WAVE IN I/aVL/V5/V6] ABNORMAL ECG Electronically signed by : JUAN M JEFFERSON, 02/07/2024 23:23:07
[2024-02-05 14:46] LABS: Reflex Lactic Add Lactic Reflex
--- NOTE | 2024-02-05 14:55 | CA_ITS ---
APPROVED REPORT EXAM: Comprehensive 2D, Doppler, and color-flow Echocardiogram [employer] Operator: Cassia Curtis CRT Ht: 5 ft 0 in Wt: 99lbs BSA: 1.38 BP: 104/57 mmHg Indications: Non STEMI, DM, AFIB, DKA TDE LIMITED WINDOWS, BODY HABITUS 2D Dimensions Left Atrium 2.06 cm EF AP4 49.10 % LVOT 1.68 cm (M/F) 1.5-2.5 GL Strain -9.0 % M-Mode Dimensions RVDd 1.18 cm (0.9-2.6) LVDd 3.14 cm (3.5-5.7) Ao Diam 3.36 cm (2.0-3.7) LVDs 1.82 cm (3.5-5.7) IVSd 1.96 cm (0.6-1.1) PWd 0.56 cm (0.6-1.1) EF (Teich) 74.40% FS 42.00% EDV (Teich) 39.10 mL TAPSE 1.48 (<1.7) ESV (Teich) 10.00 mL LV Diastology E Decel Time 169 (160-240 msec) E/A Ratio 0.84 MED E' 4.3 (>= 7 cm/sec) MED A' 10.00 cm/s E'/MED E' Ratio 11.93 (<= 14) LAT E' 5.2 (>= 10 cm/sec) LAT A' 12.90 cm/s E/LAT E' Ratio 9.87 (<= 14) Aortic Valve AoV Peak Harlan. 150.0 (50-130 cm/s) AI PHT 350.00 ms AO Peak GR. 9.00 mmHg Mitral Valve MV E Max Harlan. 51.0 (40-130 cm/s) MV A Velocity 61.0 (40-130 cm/s) E/A Ratio 0.84 MV Decel. Time 169 (160-240 ms) Tricuspid Valve TR P. Velocity 303.00 cm/s RAP Estimate 10.00 mmHg RVSP 46.80 mmHg Left Ventricle The left ventricle is normal size. The left ventricular systolic function is normal. The left ventricular ejection fraction is within the normal range. There is increased LV wall thickness. There is normal LV segmental wall motion. Diastolic function is indeterminate. LVEF is 55%. Right Ventricle Right ventricle is mildly dilated. The right ventricular systolic function is normal. Atria The left atrium size is normal. The right atrium size is normal. There is no Doppler evidence of interatrial shunt. Aortic Valve The aortic valve is mildly thickened. There is no aortic valvular stenosis. Mild aortic regurgitation. Mitral Valve The mitral valve is normal in structure. No evidence of mitral valve stenosis. Trace mitral regurgitation. Tricuspid Valve The tricuspid valve leaflets are thin and pliable. Mild tricuspid regurgitation. RVSP is 30-35 mmHg. Pulmonic Valve The pulmonary valve is normal in structure. Mild to moderate pulmonic regurgitation. Great Vessels The aortic root is normal in size. The ascending aorta is not well visualized. IVC is normal in size and collapses >50% with inspiration. Pericardium There is no pericardial effusion. Other Information Study Quality: Fair Conclusion Normal biventricular systolic function. Mild RV dilation. Mild AI, mild TX, mild TR. RVSP is 30-35 mmHg. Electronically signed by : Marissa Tyler MD 02/06/2024 16:38:53
--- NOTE | 2024-02-05 15:08 | P.CONCA_ITS ---
History of Present Illness History of Present Illness Consult date: 02/05/24 Requesting physician: Aren Gomez Chief complaint: elevated troponin History of present illness: This is an 83-year-old white female who was brought to the emergency department from a care home due to hypotension and lethargy. Most of her history and information comes from her emergency room visit. The patient is really not able to provide me with any history or information. She denies any chest pain or pressure. She denies any shortness of breath or edema. She denies any fever, chills, nausea, vomiting, diarrhea, PND or orthopnea. She is oriented to self. She does not answer when I ask her questions about place and time. She denies a past medical history of heart disease but I am not sure whether this is accurate information. I do not have any information on her past medical history or current medications at this time. Upon arrival to the emergency department the patient was found to be in atrial fibrillation with RVR, heart rate was in the 170s. Her heart rate is now down to around 100 bpm. She denies any palpitations. She also has an elevated troponin at 0.20 and 0.69. She did meet the criteria for sepsis and sepsis protocol has been initiated. Her lactic acid was 4.1. Her glucose was 858. Renal function was also elevated with a creatinine of 3.0. [facility] Disclaimer: The information contained in this section may have been updated after the patient was seen, as this information can be updated by other users. Medical History DKA (diabetic ketoacidosis) Diabetes mellitus Hiatal hernia Acute kidney injury Sepsis Atrial fibrillation with RVR Non-STEMI (non-ST elevated myocardial infarction) Family History (Updated 02/05/24 @ 17:51 by Elvia Hendrickson RN) Other No significant family history Social History (Updated 02/05/24 @ 17:52 by Elvia Hendrickson RN) Smoking Status: Never smoker alcohol intake: never current occupational status: other Travel in the last 8 weeks: None Review of Systems Review of Systems Review of systems:: pertinent systems reviewed and negative unless documented below Review of systems (narrative): The patient denies any complaints during my examination. Constitutional Constitutional: Reports system reviewed and no additional complaints, except as documented Eyes Eyes: Reports system reviewed and no additional complaints, except as documented ENT Ears, Nose, Mouth, and Throat: Reports system reviewed and no additional complaints, except as documented *Cardiovascular Cardiovascular: Reports system reviewed and no additional complaints, except as documented *Respiratory Respiratory: Reports system reviewed and no additional complaints, except as documented *Gastrointestinal Gastrointestinal: Reports system reviewed and no additional complaints, except as documented *Genitourinary Genitourinary: Reports system reviewed and no additional complaints, except as documented *Musculoskeletal Musculoskeletal: Reports system reviewed and no additional complaints, except as documented Integumentary/Breasts Skin/Breast: Reports system reviewed and no additional complaints, except as documented *Neurologic Neurologic: Reports system reviewed and no additional complaints, except as documented Psychiatric Psychiatric: Reports system reviewed and no additional complaints, except as documented Endocrine Endocrine: Reports system reviewed and no additional complaints, except as documented Hematologic/Lymphatic Hematologic/Lymphatic: Reports system reviewed and no additional complaints, except as documented Allergic/Immunologic Allergic/Immunologic: Reports system reviewed and no additional complaints, except as documented Exam Data for Last 24 hours Vital signs and Labs for Last 24 Hours: Temp Pulse Resp BP Pulse Ox O2 Del Method 97.9 F 111 H 24 113/54 L 90 L Room Air 02/05/24 10:13 02/05/24 11:05 02/05/24 14:30 02/05/24 14:30 02/05/24 11:05 02/05/24 10:13 Laboratory Results - last 24 hr 02/05/24 10:28: WBC 16.7 H, RBC 4.84, Hgb 14.5, Hct 49.0 H, MCV 101.2 H, MCH 29.9, MCHC 29.6 L, RDW 15.0, Plt Count 287, MPV 8.9, Neut % (Auto) 82.5 H, Lymph % (Auto) 9.7 L, [place] % (Auto) 7.0, Eos % (Auto) 0.2, Baso % (Auto) 0.6, Neut # (Auto) 13.7 H, Lymph # (Auto) 1.6, [place] # (Auto) 1.2 H, Eos # (Auto) 0.0, Baso # (Auto) 0.1, Total Counted 100, Neutrophils % (Manual) 79 H, Lymphocytes % (Manual) 10, Monocytes % (Manual) 9, Eosinophils % (Manual) 1, Basophils % (Manual) 1.0, Platelet Estimate Normal, RBC Morphology Normal, PT 10.9, INR 0.97, Sodium 150 H, Potassium 3.8, Chloride 110 H, Carbon Dioxide 24, Anion Gap 19.8 H, BUN 71 H, Creatinine 3.00 H, Estimated Creat Clear 10, Estimated GFR 15 L*, Est GFR ( Amer) 18 L*, Glucose 858 H*, Calcium 9.2, Phosphorus 7.2 H, Magnesium 2.2, Total Bilirubin 0.8, AST 24, ALT 27, Alkaline Phosphatase 106, Troponin I 0.20 H, NT-Pro-B Natriuret Pep 1170 H, Total Protein 7.3 D, Albumin 4.3, Globulin 3.0, Albumin/Globulin Ratio 1.4, TSH 0.46 L, Free T4 2.05, Acetone Level Small 02/05/24 10:36: VBG pH 7.34, VBG pCO2 46.0, VBG pO2 79.0 H, VBG HCO3 24.5, VBG Total CO2 25.9, VBG O2 Saturation 93.9 H, VBG Base Excess -1.2, VBG Lactic Acid 4.1 H 02/05/24 13:29: Troponin I 0.69 H I & O for Last 24 hours: Intake & Output 02/02/24 02/03/24 02/04/24 02/05/24 23:59 23:59 23:59 23:59 Weight 99 lb 6 oz Narrative: EKG #1 is atrial fibrillation with a rate of [address] and T wave abnormalities. EKG #2 shows atrial fibrillation with a rate of 101, old anterior OK pattern and lateral T wave depression. Constitutional Constitutional: no acute distress, thin and chronically ill appearing *Routine HEENT Exam Head: Present normocephalic and atraumatic ENT: Present mucous membranes moist *Routine Neck Exam Neck: Present supple, full ROM and normal carotid upstroke; Absent JVD, carotid bruit or lymphadenopathy *Routine Respiratory Exam Respiratory: Present CTA bilaterally, normal respiratory effort, able to speak in complete sentences and symmetric chest movement *Routine Cardiovascular Exam Cardiovascular: Present Normal S1, Normal S2, tachycardia and irregularly irregular; Absent murmur or gallop *Routine Abdominal Exam Abdominal: Present soft and normoactive bowel sounds; Absent tenderness, distended or organomegaly *Routine Extremities Exam Extremities: Present full ROM, pulses intact and normal capillary refill; Absent cyanosis, clubbing or edema *Routine Skin Exam Skin: Present intact and warm; Absent erythema *Routine Neurological Exam Neurological: Present alert, CN II-XII intact and altered mental status; Absent sensory deficit or motor deficit Comments: Oriented to self Routine Psychiatric Exam Psychiatric: Present normal affect Meds Home Medications and Allergies Home Medications ?Medication ?Instructions ?Recorded ?Confirmed ?Type acetaminophen 500 mg tablet 500 mg PO Q4HP PRN Mild Pain 02/05/24 02/06/24 History (Scale Score 1-4) amlodipine 10 mg tablet 10 mg PO DAILY 02/05/24 02/05/24 History donepezil 5 mg tablet 5 mg PO HS 02/05/24 02/06/24 History escitalopram oxalate 20 mg tablet 20 mg PO DAILY 02/05/24 02/05/24 History famotidine 40 mg tablet 40 mg PO HS 02/05/24 02/05/24 History furosemide 20 mg tablet 20 mg PO DAILY 02/05/24 02/05/24 History levothyroxine 75 mcg tablet 75 mcg PO DAILY 02/05/24 02/05/24 History linagliptin 5 mg tablet (Tradjenta) 5 mg PO DAILY 02/05/24 02/05/24 History lisinopril 40 mg tablet 40 mg PO DAILY 02/05/24 02/05/24 History loratadine 10 mg tablet 10 mg PO DAILY 02/05/24 02/05/24 History memantine 10 mg tablet 10 mg PO BID 02/05/24 02/05/24 History metformin 500 mg tablet 500 mg PO BID 02/05/24 02/05/24 History metoprolol tartrate 25 mg tablet 25 mg PO BID 02/05/24 02/05/24 History omeprazole 20 mg capsule,delayed 20 mg PO BID gerd 02/05/24 02/05/24 History release quetiapine 25 mg tablet 12.5 mg PO BID 02/05/24 02/05/24 History simvastatin 20 mg tablet 20 mg PO HS 02/05/24 02/05/24 History New Prescriptions to Start Prescriptions: Allergies Allergy/AdvReac Type Severity Reaction Status Date / Time No Known Allergies Allergy Unverified 06/04/17 14:59 Assessment and Plan *Assessment and plan (1) Hyperosmolar hyperglycemic state (HHS): Status: Acute Category: Medical Code(s): E11.00 - Type 2 diabetes mellitus with hyperosmolarity without nonketotic hyperglycemic-hyperosmolar coma (NKHHC) (2) Non-STEMI (non-ST elevated myocardial infarction): Status: Acute Category: Medical Code(s): I21.4 - Non-ST elevation (NSTEMI) myocardial infarction (3) Atrial fibrillation with RVR: Status: Acute Category: Medical Code(s): I48.91 - Unspecified atrial fibrillation (4) Sepsis: Status: Acute Qualifiers: Sepsis acute organ dysfunction status: unspecified Sepsis type: sepsis due to unspecified organism Qualified Code(s): A41.9 - Sepsis, unspecified organism Category: Medical Code(s): A41.9 - Sepsis, unspecified organism (5) Acute kidney injury: Status: Acute Category: Medical Code(s): N17.9 - Acute kidney failure, unspecified (6) Hiatal hernia: Status: Acute Category: Medical Code(s): K44.9 - Diaphragmatic hernia without obstruction or gangrene (7) Diabetes mellitus: Status: Acute Qualifiers: Diabetes mellitus complication status: without complication Diabetes mellitus penitentiary insulin use: unspecified penitentiary insulin use status Diabetes mellitus type: type 2 Qualified Code(s): E11.9 - Type 2 diabetes mellitus without complications Category: Medical Code(s): E11.9 - Type 2 diabetes mellitus without complications Plan Plan: 1. The patient was admitted to the hospital with sepsis, HHS, elevated troponin and an acute kidney injury. The patient did meet the criteria for sepsis. She has been started on IV antibiotics. Will defer this to the hospitalist. 2. The patient has a glucose of 858. She likely has HHS. Will also defer this to the hospitalist. 3. The patient does have an elevated troponin consistent with a non-STEMI. She also has ST depression noted on her EKG. Will continue to obtain serial troponins. But given her renal function we will hold off on left cardiac catheterization at this time. This is most likely a type II non-STEMI since secondary to her HHS and atrial fibrillation with RVR. She may ultimately end up with a left cardiac catheterization during this hospitalization once her HHS and sepsis have improved. 4. We will obtain an echocardiogram to evaluate her LV function secondary to her non-STEMI and elevated troponin. 5. Will start aspirin 81 mg daily due to her elevated troponin. 6. Will start Lipitor 40 mg p.o. nightly secondary to her non-STEMI. 7. Repeat CBC, BMP, liver panel and lactic acid in the morning. 8. Her blood pressure is well-controlled at this time. 9. Her LDL goal is less than 55. Will get a lipid panel in the morning. 10. Will hold off on a beta-adin at this time due to her HHS and sepsis. Once she has recovered from this then we can initiate a beta-adin for her non-STEMI. 11. The patient was in atrial fibrillation with RVR. Her rate did improve with fluids. We do anticipate that her rate will continue to include as she improves from her sepsis and HHS. 12. Recommend Lovenox 1 mg/kg SQ twice daily. 13. Further recommendations will be made pending the patient's response to tr eatment and the results of her echocardiogram today. Thank you for the opportunity to help participate in the care of this patient. All recommendations and orders are per Dr. Tyler.
[2024-02-05 15:18] LABS: Microscopic, Urine URINE MICROSCOPIC (MICROSCOPIC)
--- NOTE | 2024-02-05 15:18 | PC.NURSE ---
pharmacy contacted and bringing the insulin drip and aspirin suppository down for pt
[2024-02-05 15:22] LABS: Appearance,Urine CLEAR (Clear); Blood, Urine 1+ (Negative); Color,Urine YELLOW (Yellow); Glucose,Urine (UA) 3+ (Negative); Ketones,Urine TRACE (Negative); Leukocyte Esterase,Urine Negative (Negative); Nitrate,Urine Negative (Negative); PH,Urine 5.5 (5.0-8.5); Protein,Urine Negative (Negative); Urobilinogen,Urine 0.2 EU/dl (0.2)
[2024-02-05 15:27] LABS: Lactic Acid Follow Up (RFLX 1) 1.5 mmol/L (0.7-2.1)
[2024-02-05] MEDS: INSULIN REGULAR, HUMAN 100 UNIT in 0.9 % SODIUM CHLORIDE 100 ML IV (15:30)
--- NOTE | 2024-02-05 15:30 | PC.NURSE ---
FSBS still reading critically high at this time.
[2024-02-05 15:37] LABS: Bilirubin,Urine Negative (Negative)
[2024-02-05 15:46] LABS: Chloride 115 mmol/L (98-107); Potassium 3.5 mmoL/L (3.5-5.1)
[2024-02-05 15:49] LABS: Blood Urea Nitrogen 74 mg/dl (7-17); Calcium 8.7 mg/dl (8.4-10.2); Carbon Dioxide 25 mmol/L (22.0-30.0); Creatinine Clearance Estimated 11 mL/min (50-200); Estimated Glomerular Filt Rate 16 ml/min (>60); GFR (African American) 19 ML/MIN (>60)
[2024-02-05 16:00] LABS: Anion Gap 14.5 mEq/L (5-15); Glucose 719 mg/dl (74-100); Sodium 151 mmol/L (136-145)
--- NOTE | 2024-02-05 16:03 | PC.NURSE ---
HS aware of admission for HHS
[2024-02-05 16:06] LABS: RBC,Urine 20-50 #/hpf (0-3); Squamous Epithelial Cell,Urine 20-50 #/hpf (0-5); WBC,Urine 50-100 #/hpf (0-3)
[2024-02-05 16:07] LABS: Bacteria,Urine 3+ /lpf
--- NOTE | 2024-02-05 16:14 | PC.NURSE ---
Hospitalist at bedside talking with patient at this time.
[2024-02-05] MEDS: ASPIRIN 300MG SUPPOSITORY 300 MG RC (16:39)
--- NOTE | 2024-02-05 16:39 | PC.NURSE ---
Eddie Bedolla RN given report.
[2024-02-05 16:47] LABS: Creatine Kinase 81 U/L (30-135)
--- NOTE | 2024-02-05 17:55 | P.HP_ITS ---
History of Present Illness *Admission Date: 02/05/24 *History of present illness: Really nice patient with past medical history of diabetes, A-fib with RVR presents from [facility]. Patient extremely poor historian, but noted to have elevated troponins, and blood glucose 800 mg/dL in emergency r oom. Patient subsequently admitted for hyperosmolar hyperglycemic syndrome, and type II demand notes STEMI. Patient seen by cardiology in emergency room. Denies any acute complaints when evaluated by Dr. Sánchez. Disoriented to time and location but oriented to self. [facility] Disclaimer: The information contained in this section may have been updated after the patient was seen, as this information can be updated by other users. Medical History DKA (diabetic ketoacidosis) Diabetes mellitus Hiatal hernia Acute kidney injury Sepsis Atrial fibrillation with RVR Non-STEMI (non-ST elevated myocardial infarction) Family History (Updated 02/05/24 @ 17:51 by Elvia Hendrickson RN) Other No significant family history Social History (Updated 02/05/24 @ 17:52 by Elvia Hendrickson RN) Smoking Status: Never smoker alcohol intake: never current occupational status: other Travel in the last 8 weeks: None Review of Systems Review of Systems Review of systems:: pertinent systems reviewed and negative unless documented below *Neurologic Neurologic: Reports system reviewed and no additional complaints, except as documented Meds Home Medications and Allergies New Prescriptions to Start Prescriptions: Allergies Allergy/AdvReac Type Severity Reaction Status Date / Time No Known Allergies Allergy Unverified 06/04/17 14:59 Exam Data for Last 24 hours Vital signs and Labs for Last 24 Hours: Temp Pulse Resp BP Pulse Ox O2 Del Method 97.9 F 95 H 20 99/57 L 94 L Room Air 02/05/24 17:01 02/05/24 17:18 02/05/24 17:01 02/05/24 17:01 02/05/24 17:00 02/05/24 17:46 Laboratory Results - last 24 hr 02/05/24 10:28: WBC 16.7 H, RBC 4.84, Hgb 14.5, Hct 49.0 H, MCV 101.2 H, MCH 29.9, MCHC 29.6 L, RDW 15.0, Plt Count 287, MPV 8.9, Neut % (Auto) 82.5 H, Lymph % (Auto) 9.7 L, [place] % (Auto) 7.0, Eos % (Auto) 0.2, Baso % (Auto) 0.6, Neut # (Auto) 13.7 H, Lymph # (Auto) 1.6, [place] # (Auto) 1.2 H, Eos # (Auto) 0.0, Baso # (Auto) 0.1, Total Counted 100, Neutrophils % (Manual) 79 H, Lymphocytes % (Manual) 10, Monocytes % (Manual) 9, Eosinophils % (Manual) 1, Basophils % (Manual) 1.0, Platelet Estimate Normal, RBC Morphology Normal, PT 10.9, INR 0.97, Sodium 150 H, Potassium 3.8, Chloride 110 H, Carbon Dioxide 24, Anion Gap 19.8 H, BUN 71 H, Creatinine 3.00 H, Estimated Creat Clear 10, Estimated GFR 15 L*, Est GFR ( Amer) 18 L*, Glucose 858 H*, Calcium 9.2, Phosphorus 7.2 H, Magnesium 2.2, Total Bilirubin 0.8, AST 24, ALT 27, Alkaline Phosphatase 106, Troponin I 0.20 H, NT-Pro-B Natriuret Pep 1170 H, Total Protein 7.3 D, Albumin 4.3, Globulin 3.0, Albumin/Globulin Ratio 1.4, TSH 0.46 L, Free T4 2.05, Acetone Level Small 02/05/24 10:36: VBG pH 7.34, VBG pCO2 46.0, VBG pO2 79.0 H, VBG HCO3 24.5, VBG Total CO2 25.9, VBG O2 Saturation 93.9 H, VBG Base Excess -1.2, VBG Lactic Acid 4.1 H 02/05/24 13:29: Total Creatine Kinase 81, Troponin I 0.69 H 02/05/24 15:07: Lactate 1.5 02/05/24 15:14: Urine Color Yellow, Urine Appearance Clear, Urine pH 5.5, Ur Specific [place] 1.020, Urine Protein Negative, Urine Glucose (UA) 3+, Urine Ketones Trace, Urine Blood 1+, Urine Nitrate Negative, Urine Bilirubin Negative, Urine Urobilinogen 0.2, Ur Leukocyte Esterase Negative, Urine RBC 20-50, Urine WBC 50-100, Ur Squamous Epith Cells 20-50, Urine Bacteria 3+ 02/05/24 15:32: Sodium 151 H*, Potassium 3.5, Chloride 115 H, Carbon Dioxide 25, Anion Gap 14.5, BUN 74 H, Creatinine 2.90 H, Estimated Creat Clear 11, Estimated GFR 16 L*, Est GFR ( Amer) 19 L*, Glucose 719 H*, Calcium 8.7 I & O for Last 24 hours: Intake & Output 02/02/24 02/03/24 02/04/24 02/05/24 23:59 23:59 23:59 23:59 Intake Total 5.308 / 5.308 Balance 5.308 / 5.308 Weight 43.545 kg Constitutional Constitutional: mild distress *Routine HEENT Exam Head: Present normocephalic Eye: Present EOMI ENT: Present mucous membranes dry *Routine Neck Exam Neck: Present supple and full ROM *Routine Respiratory Exam Respiratory: Present CTA bilaterally *Routine Cardiovascular Exam Cardiovascular: Present tachycardia *Routine Abdominal Exam Abdominal: Present soft and normoactive bowel sounds *Routine Rectal Exam Rectal:: deferred *Routine Genitalia Exam Genitalia:: deferred *Routine Extremities Exam Extremities: Present full ROM and normal capillary refill *Routine Skin Exam Skin: Present intact and dry Assessment and Plan *Assessment and plan (1) Hyperosmolar hyperglycemic state (HHS): Status: Acute Category: Medical Code(s): E11.00 - Type 2 diabetes mellitus with hyperosmolarity without nonketotic hyperglycemic-hyperosmolar coma (NKHHC) (2) DKA (diabetic ketoacidosis): Status: Acute Qualifiers: Diabetes mellitus type: due to underlying condition Diabetes mellitus complication detail: without coma Qualified Code(s): E08.10 - Diabetes mellitus due to underlying condition with ketoacidosis without coma Category: Medical Code(s): E11.10 - Type 2 diabetes mellitus with ketoacidosis without coma (3) Diabetes mellitus: Status: Acute Qualifiers: Diabetes mellitus type: type 2 Diabetes mellitus service delivery consultant insulin use: unspecified senior care insulin use status Diabetes mellitus complication status: without complication Qualified Code(s): E11.9 - Type 2 diabetes mellitus without complications Category: Medical Code(s): E11.9 - Type 2 diabetes mellitus without complications (4) Acute kidney injury: Status: Acute Category: Medical Code(s): N17.9 - Acute kidney failure, unspecified (5) Sepsis: Status: Acute Qualifiers: Sepsis type: sepsis due to unspecified organism Sepsis acute organ dysfunction status: unspecified Qualified Code(s): A41.9 - Sepsis, unspecified organism Category: Medical Code(s): A41.9 - Sepsis, unspecified organism (6) Atrial fibrillation with RVR: Status: Acute Category: Medical Code(s): I48.91 - Unspecified atrial fibrillation Plan Hyperosmolar hyperglycemic syndrome: ?Admit to ICU, insulin drip, isotonic fluid rehydration, check BMPs every 4 x 4 Hypernatremia secondary to dehydration: ? Rehydrate with LR, serial BMPs A-fib with RVR: ? Probably being exacerbated by infection, dehydration, HHS or all 3. Will treat each condition, then reevaluate. Cardiology consultation in progress. [place] secondary to dehydration: ? Hoping patient suffering from prerenal azotemia. Rehydrate with LR and recheck. Possible UTI - meropenum IV. Urine culture ordered by emergency room. Will follow results closely. Type II non-STEMI: ?Being followed by cardiology, cardiology consultation, serial troponins, aspirin daily, statin. Echocardiogram ordered for a.m. PPx: Lovenox subcutaneous Status DNR but family does require intubation if needed FEN: Start with clears and advance as tolerated 35 minutes of critical care time spent on patient by Dr. Sánchez 02/05/2024
[2024-02-05] MEDS: MEROPENEM 1 GM in 0.9 % SODIUM CHLORIDE 100 ML IV (18:23)
[2024-02-05] MEDS: LACTATED RINGERS 1000ML 1,000 ML 150 ML IV (18:24)
[2024-02-05] MEDS: ENOXAPARIN 60MG/0.6ML SYRINGE 45 MG SQ (20:14)
--- NOTE | 2024-02-05 20:17 | PC.NURSE ---
Atorvastatin held at night time medications due to patient inability to arouse fully to swallow medications safely. Medication held at this time.
[2024-02-05 20:37] LABS: Microscopic, Urine URINE MICROSCOPIC (MICROSCOPIC)
[2024-02-05 20:48] LABS: Appearance,Urine CLEAR (Clear); Bilirubin,Urine Negative (Negative); Blood, Urine TRACE-I (Negative); Color,Urine YELLOW (Yellow); Glucose,Urine (UA) 2+ (Negative); Ketones,Urine TRACE (Negative); Leukocyte Esterase,Urine Negative (Negative); Nitrate,Urine Negative (Negative); PH,Urine 5.5 (5.0-8.5); Protein,Urine Negative (Negative); Urobilinogen,Urine 0.2 EU/dl (0.2)
[2024-02-05 20:50] LABS: Lactate Arterial 3.6 mmol/L (0.4-2.0)
[2024-02-05 21:21] LABS: Bacteria,Urine 1+ /lpf
[2024-02-05 21:21] LABS: Phosphorous 3.6 mg/dl (2.5-4.5)
[2024-02-05 21:26] LABS: C-Reactive Protein 5.5 mg/L (0-4)
[2024-02-05 21:38] LABS: Anion Gap 14.9 mEq/L (5-15); Blood Urea Nitrogen 65 mg/dl (7-17); Calcium 9.3 mg/dl (8.4-10.2); Carbon Dioxide 27 mmol/L (22.0-30.0); Chloride 118 mmol/L (98-107); Creatinine Clearance Estimated 13 mL/min (50-200); Estimated Glomerular Filt Rate 19 ml/min (>60); GFR (African American) 23 ML/MIN (>60); Glucose 365 mg/dl (74-100); Magnesium 2.1 mg/dl (1.6-2.3)
--- NOTE | 2024-02-05 21:42 | ECG_ITS ---
APPROVED REPORT Exam: Resting ECG HR:163 bpm ECG Measurements Heart Rate 163 AXES AK 86 P -81 QRSd 86 QRS -5 QT 240 T 167 QTc [address] DEVIATION AND MODERATE T-WAVE ABNORMALITY, CONSIDER LATERAL ISCHEMIA [-0.1+ mV T-WAVE IN I/aVL/V5/V6] CRITICAL TEST RESULT UNCONFIRMED REPORT Electronically signed by : French Sanchez MD 02/06/2024 08:15:35
[2024-02-05 21:43] LABS: Troponin I 1.39 ng/ml (0.00-0.034)
--- NOTE | 2024-02-05 21:45 | PC.NURSE ---
While charting it was noted that patient heart rate increased to 2140 ranging from 140-160 bpm. EKG obtained. Junctional tachycardia interpreted per EKG. NETWORK SOLUTIONS ARCHITECT informed of rhythm change, new orders received, see MAR. At this same time critical results received from lab of critical K+, Na+, and troponin levels. See correlated lab values at 2044. Patient remains to appear comfortable/sleeping with eyes closed at this time.
[2024-02-05 21:46] LABS: Potassium 2.9 mmoL/L (3.5-5.1); Sodium 157 mmol/L (136-145)
[2024-02-05 21:56] LABS: Procalcitonin 0.198 ng/mL (0.0-2.0)
[2024-02-05] MEDS: MAGNESIUM SULFATE IN WATER 2 GM/50 ML PIGGYBACK IV (22:04)
[2024-02-05] MEDS: KCl 20mEq/100ml 100 ML 50 MEQ IV (22:04)
[2024-02-05] MEDS: SODIUM CHLORIDE 0.45 % 1,000 ML 150 ML IV (22:43)
[2024-02-05] MEDS: METOPROLOL TARTRATE 25MG TABLET 12.5 MG PO (23:53)
[2024-02-06] VITALS (19 sets, daily range): BP systolic 88–155; BP diastolic 40–80; PULSE 60–162; RESP 13–24; TEMP 36.8–37.3; O2SAT 2–100; BMI 17.6
--- NOTE | 2024-02-06 00:17 | PC.NURSE ---
Patient FSBS obtained with result of 142. LICENSED WEIGHER notified. Order to turn off insulin gtt at this time, and to continue q1hr FSBS, and to monitor heart rate. Order remains to continue electrolyte replacement as ordered. Patient resting with eyes closed at this time, denies any complaints.
[2024-02-06] MEDS: METOPROLOL TARTRATE 5MG/5ML VIAL 2.5 MG IV (00:45)
[2024-02-06] MEDS: KCl 20mEq/100ml 100 ML 50 MEQ IV ×2 (01:03→02:58)
[2024-02-06 02:01] LABS: Anion Gap 9.6 mEq/L (5-15); Blood Urea Nitrogen 58 mg/dl (7-17); Calcium 8.9 mg/dl (8.4-10.2); Carbon Dioxide 26 mmol/L (22.0-30.0); Chloride 122 mmol/L (98-107); Creatinine Clearance Estimated 14 mL/min (50-200); Estimated Glomerular Filt Rate 23 ml/min (>60); GFR (African American) 27 ML/MIN (>60); Glucose 181 mg/dl (74-100); Magnesium 2.8 mg/dl (1.6-2.3); Potassium 3.6 mmoL/L (3.5-5.1)
[2024-02-06 02:14] LABS: Sodium 154 mmol/L (136-145); Troponin I 1.05 ng/ml (0.00-0.034)
--- NOTE | 2024-02-06 02:15 | PC.NURSE ---
Critical result received from lab of patient sodium at 154, and troponin 1.05 from Bessie in lab. 0230 ARPN made aware of lab results, and most recent FSBS 172. New orders to monitor FSBS q2 hrs at 0400 & 0600. No medication coverage at this time. Patient resting comfortably at this time, denies any needs.
[2024-02-06] MEDS: MEROPENEM 1 GM in 0.9 % SODIUM CHLORIDE 100 ML IV ×3 (02:56→17:27)
[2024-02-06 03:54] LABS: POC Glucose,Bedside 166 (70-110)
[2024-02-06 03:54] LABS: POC Glucose,Bedside 172 (70-110)
[2024-02-06 03:54] LABS: POC Glucose,Bedside 364 (70-110)
[2024-02-06 03:54] LABS: POC Glucose,Bedside 457 (70-110)
[2024-02-06 03:54] LABS: POC Glucose,Bedside 543 (70-110)
[2024-02-06 03:54] LABS: POC Glucose,Bedside 202 (70-110)
[2024-02-06 03:54] LABS: POC Glucose,Bedside 257 (70-110)
[2024-02-06 03:54] LABS: POC Glucose,Bedside 320 (70-110)
[2024-02-06 03:54] LABS: POC Glucose,Bedside 491 (70-110)
[2024-02-06 03:54] LABS: POC Glucose,Bedside 142 (70-110)
[2024-02-06] MEDS: SODIUM CHLORIDE 0.45 % 1,000 ML 150 ML IV ×3 (05:19→18:35)
[2024-02-06 05:28] LABS: Basophils # 0.1 K/mm3 (0-0.2); Basophils % 0.6 % (0.1-2.0); Eosinophils # 0.3 K/mm3 (0.0-0.4); Eosinophils % 2.5 % (0.1-12.0); Hematocrit 35.8 % (37.0-47.0); Lymphocytes # 1.9 K/mm3 (0.7-4.5); Lymphocytes % 15.2 % (10-50); Mean Corpuscular HGB Conc 30.4 g/dL (31.8-35.4); Mean Corpuscular Hemoglobin 30.1 pg (27.0-31.2); Mean Corpuscular Volume 99.1 fl (81-99); Mean Platelet Volume 8.8 fl (7.4-10.4); Monocytes # 0.8 K/mm3 (0.1-1.0); Monocytes % 6.4 % (1.7-9.3); Neutrophils # 9.2 K/mm3 (1.8-7.8); Neutrophils % 75.2 % (37.0-80.0); Platelet Count 176 K/mm3 (142-424); Red Blood Count 3.61 M/mm3 (4.20-5.40); Red Cell Distribution Width 15.2 % (11.5-17.5); White Blood Count 12.3 K/mm3 (4.8-10.8)
[2024-02-06 05:33] LABS: Chloride 123 mmol/L (98-107)
[2024-02-06 05:34] LABS: Albumin Level 2.9 g/dl (3.5-5.0); Potassium 4.6 mmoL/L (3.5-5.1)
[2024-02-06 05:36] LABS: Blood Urea Nitrogen 57 mg/dl (7-17); Creatinine Clearance Estimated 15 mL/min (50-200); Estimated Glomerular Filt Rate 24 ml/min (>60); GFR (African American) 29 ML/MIN (>60)
[2024-02-06 05:37] LABS: Alanine Aminotransferase 19 U/L (12-78); Alkaline Phosphatase 60 U/L (38-126); Anion Gap 5.6 mEq/L (5-15); Aspartate Amino Transferase 33 U/L (14-36); Bilirubin,Direct 0.5 mg/dl (0.0-0.4); Bilirubin,Indirect 0.1 mg/dL (0.0-0.9); Bilirubin,Total 0.6 mg/dl (0.2-1.3); Bilirubin,Unconjugated 0.1 mg/dL (0.0-1.1); Calcium 8.3 mg/dl (8.4-10.2); Carbon Dioxide 29 mmol/L (22.0-30.0); Chol/HDL Ratio 5.2 (1-3.5); Cholesterol 130 mg/dl (140-200); Glucose 160 mg/dl (74-100); HDL Cholesterol 25 mg/dl (40-60); Total Protein,Serum 5.5 g/dl (6.3-8.2); Triglycerides 331 mg/dl (30-150); VLDL Cholesterol 66 mg/dL (0-40)
[2024-02-06 05:42] LABS: Sodium 153 mmol/L (136-145)
--- NOTE | 2024-02-06 05:42 | PC.NURSE ---
Elevated sodium result of 153 received from lab. CLINICAL RESEARCH NURSE COORDINATOR aware.
[2024-02-06 05:48] LABS: Direct LDL Cholesterol 57.65 mg/dL (100-129)
[2024-02-06 05:53] LABS: Troponin I 1.11 ng/ml (0.00-0.034)
[2024-02-06 05:58] LABS: Hemoglobin 10.9 g/dL (12.2-16.2)
--- NOTE | 2024-02-06 07:42 | SW/DCPLANNER ---
Addendum entered by Jennifer Long RN 02/07/24 15:20: Patient discharging back to [facility] today. Original Note: This patient currently resides at [facility] level of care. I will continue to follow up w/ Gerri at [facility] until patient is medically stable for discharge. Discharge date is unknown at this time.
--- NOTE | 2024-02-06 07:43 | P.CONPHA_ITS ---
Pharmacy Intervention Comments: HOME MEDICATION LIST VERIFIED USING THE MAR FROM RESIDENTIAL
[2024-02-06] MEDS: ASPIRIN EC 81MG TABLET 81 MG PO (09:04)
--- NOTE | 2024-02-06 10:15 | DIET.NUTRFU ---
RD consulted for diet instruction, patient lives at [facility] and is alert to self. Based on interview she probably requires encouragement for po intake and hydration. Na level was 153H, NaCl ordered for re-hydration. BS have been 181-142 since admit. She take metformin and tradjenta at home. Also testing for possible UTI which may have affecting her po intake at [place]. She has a low BMI and appears malnourished, she has muscle and fat depletion triggering for severe PCM. Will start chocolate glucerna when diet upgardes
--- NOTE | 2024-02-06 11:31 | P.PN_ITS ---
Subjective Subjective Date: 02/06/24 Time: 09:00 Principal diagnosis: type II non-stemi, afib with rvr Interval history: This is an 83-year-old female who was brought into the hospital and found to have atrial fibrillation with RVR, an elevated troponin consistent with a non- STEMI sepsis and hyperosmolar hyperglycemia. The patient has been treated with fluids and insulin. Her blood glucose has improved today as well as her renal function. Her troponin max was 1.39. She currently denies any chest pain or pressure. She also denies any shortness of breath or edema. She denies any fever, chills, nausea, vomiting, diarrhea, PND or orthopnea. She appears to be in no distress and is sleeping flat when I walk in the room. She does arouse easily. She is oriented to self. Exam Data for Last 24 hours Vital signs and Labs for Last 24 Hours: Temp Pulse Resp BP Pulse Ox O2 Del Method O2 Flow Rate 98.3 F 68 24 138/78 100 Nasal Cannula 2 02/06/24 08:02/06/24 11:00 02/06/24 11:00 02/06/24 11:00 02/06/24 11:00 02/06/24 11:10 02/06/24 11:10 Laboratory Results - last 24 hr 02/05/24 10:28: Total Counted 100, Neutrophils % (Manual) 79 H, Lymphocytes % (Manual) 10, Monocytes % (Manual) 9, Eosinophils % (Manual) 1, Basophils % ( Manual) 1.0, Platelet Estimate Normal, RBC Morphology Normal, NT-Pro-B Natriuret Pep 1170 H, Free T4 2.05 02/05/24 13:29: Total Creatine Kinase 81, Troponin I 0.69 H 02/05/24 15:07: Lactate 1.5 02/05/24 15:14: Urine Color Yellow, Urine Appearance Clear, Urine pH 5.5, Ur Specific [place] 1.020, Urine Protein Negative, Urine Glucose (UA) 3+, Urine Ketones Trace, Urine Blood 1+, Urine Nitrate Negative, Urine Bilirubin Negative, Urine Urobilinogen 0.2, Ur Leukocyte Esterase Negative, Urine RBC 20-50, Urine WBC 50-100, Ur Squamous Epith Cells 20-50, Urine Bacteria 3+ 02/05/24 15:32: Sodium 151 H*, Potassium 3.5, Chloride 115 H, Carbon Dioxide 25, Anion Gap 14.5, BUN 74 H, Creatinine 2.90 H, Estimated Creat Clear 11, Estimated GFR 16 L*, Est GFR ( Amer) 19 L*, Glucose 719 H*, Calcium 8.7 02/05/24 17:01: POC Glucose 543 H* 02/05/24 18:02: ABG Lactate 3.6 H 02/05/24 18:03: POC Glucose 491 H* 02/05/24 18:54: POC Glucose 457 H* 02/05/24 20:05: POC Glucose 364 H* 02/05/24 20:25: Urine Color Yellow, Urine Appearance Clear, Urine pH 5.5, Ur Specific [place] 1.020, Urine Protein Negative, Urine Glucose (UA) 2+, Urine Ketones Trace, Urine Blood Trace-i, Urine Nitrate Negative, Urine Bilirubin Negative, Urine Urobilinogen 0.2, Ur Leukocyte Esterase Negative, Urine RBC 5- 10, Urine WBC 5-10, Ur Squamous Epith Cells 3-5, Urine Bacteria 1+ 02/05/24 20:45: Sodium 157 H*, Potassium 2.9 L*, Chloride 118 H, Carbon Dioxide 27, Anion Gap 14.9, BUN 65 H, Creatinine 2.40 H, Estimated Creat Clear 13, Estimated GFR 19 L*, Est GFR ( Amer) 23 L D, Glucose 365 H D, Calcium 9.3, Phosphorus 3.6 D, Magnesium 2.1, Troponin I 1.39 H, C-Reactive Protein 5.5 H, Procalcitonin 0.198 02/05/24 21:03: POC Glucose 320 H* 02/05/24 22:06: POC Glucose 257 H 02/05/24 23:15: POC Glucose 202 H 02/06/24 00:10: POC Glucose 142 H 02/06/24 01:24: POC Glucose 166 H 02/06/24 01:35: Sodium 154 H*, Potassium 3.6 D, Chloride 122 H, Carbon Dioxide 26, Anion Gap 9.6, BUN 58 H, Creatinine 2.10 H, Estimated Creat Clear 14, Estimated GFR 23 L, Est GFR ( Amer) 27 L, Glucose 181 H D, Calcium 8.9, Magnesium 2.8 H D, Troponin I 1.05 H 02/06/24 02:23: POC Glucose 172 H 02/06/24 05:18: WBC 12.3 H D, RBC 3.61 L D, Hgb 10.9 L D, Hct 35.8 L, MCV 99.1 H , MCH 30.1, MCHC 30.4 L, RDW 15.2, Plt Count 176 D, MPV 8.8, Neut % (Auto) 75.2, Lymph % (Auto) 15.2, [place] % (Auto) 6.4, Eos % (Auto) 2.5, Baso % (Auto) 0.6, Neut # (Auto) 9.2 H, Lymph # (Auto) 1.9, [place] # (Auto) 0.8, Eos # (Auto) 0.3, Baso # (Auto) 0.1, Sodium 153 H*, Potassium 4.6 D, Chloride 123 H, Carbon Dioxide 29, Anion Gap 5.6, BUN 57 H, Creatinine 2.00 H, Estimated Creat Clear 15, Estimated GFR 24 L, Est GFR ( Amer) 29 L, Glucose 160 H, Lactate 1.0, Calcium 8.3 L, Total Bilirubin 0.6, Direct Bilirubin 0.5 H, Conjugated Bilirubin 0.0, Indirect Bilirubin 0.1, Unconjugated Bilirubin 0.1, AST 33 D, ALT 19 D, Alkaline Phosphatase 60, Troponin I 1.11 H, Total Protein 5.5 L, Albumin 2.9 L D , Triglycerides 331 H, Cholesterol 130 L, LDL Cholesterol Direct 57.65 L, VLDL Cholesterol 66 H, HDL Cholesterol 25 L, Cholesterol/HDL Ratio 5.2 H I & O for Last 24 hours: Intake & Output 02/03/24 02/04/24 02/05/24 02/06/24 23:59 23:59 23:59 23:59 Intake Total 5.308 / 5120.442 3248.672 / 2488.672 Output Total 300 / 300 Balance 5.308 / 416.941 6355.672 / 2188.672 Weight 96 lb 95 lb 14.417 oz Microbiology Reports for the Last 24 Hours: Microbiology 02/05/24 10:50 Blood Blood Culture - Preliminary NO GROWTH AFTER 24 HOURS 02/05/24 10:46 Blood Blood Culture - Preliminary NO GROWTH AFTER 24 HOURS Constitutional Constitutional: no acute distress, thin and chronically ill appearing *Routine HEENT Exam Head: Present normocephalic and atraumatic ENT: Present mucous membranes moist *Routine Neck Exam Neck: Present supple, full ROM and normal carotid upstroke; Absent JVD, carotid bruit or lymphadenopathy *Routine Respiratory Exam Respiratory: Present CTA bilaterally, normal respiratory effort, able to speak in complete sentences and symmetric chest movement *Routine Cardiovascular Exam Cardiovascular: Present Normal S1, Normal S2, tachycardia and irregularly irregular; Absent murmur or gallop *Routine Abdominal Exam Abdominal: Present soft and normoactive bowel sounds; Absent tenderness, distended or organomegaly *Routine Extremities Exam Extremities: Present full ROM, pulses intact and normal capillary refill; Absent cyanosis, clubbing or edema *Routine Skin Exam Skin: Present intact and warm; Absent erythema *Routine Neurological Exam Neurological: Present alert, CN II-XII intact and altered mental status; Absent sensory deficit or motor deficit Comments: Oriented to self. Routine Psychiatric Exam Psychiatric: Present normal affect Progress Note: A&P Assessment and plan (1) Hyperosmolar hyperglycemic state (HHS): Status: Acute (2) Non-STEMI (non-ST elevated myocardial infarction): Status: Acute (3) Atrial fibrillation with RVR: Status: Acute (4) Diabetes mellitus: Status: Acute (5) Acute kidney injury: Status: Acute (6) Sepsis: Status: Acute Assessment and Plan Assessment and Plan for All Diagnoses:: Plan: 1. The patient was admitted to the hospital with sepsis, HHS, elevated troponin and acute kidney injury. She did meet the criteria for sepsis and had an elevated lactic acid and was started on IV antibiotics. Will defer to the hospitalist. 2. The patient had a glucose of 858 on arrival. She was treated with fluids and insulin. Her glucose is down to 170 this morning. Will defer treatment of the HHS to the hospitalist. 3. The patient did have an elevated troponin consistent with a non-STEMI. She also had ST depression noted on her EKG. Her troponin max was 1.39. This is most likely a type II non-STEMI secondary to HHS and atrial fibrillation with RVR. No plans for left cardiac catheterization at this time until she has recovered from HHS and sepsis. Will continue with medical management at this time with aspirin and Lipitor. Recommend outpatient ischemic evaluation once she is discharged from the hospital. 4. Once the patient's free water has been corrected, then we will start her on a low-dose beta-adin for suppression of the atrial fibrillation and due to the non-STEMI. 5. Preliminary echocardiogram shows a normal ejection fraction. We are still currently awaiting the official read. 6. Her blood pressure is well-controlled. 7. Her LDL goal is less than 55. Her LDL is 57. She has been started on a statin. 8. Continue Lovenox for anticoagulation. She will need to be switched to an oral NOAC before discharge from the hospital. 9. Further recommendations will be made pending the patient's response to treatment. Thank you for the opportunity to help participate in the care of this patient. All recommendations and orders are per Dr. Rosado.
[2024-02-06 11:39] LABS: POC Glucose,Bedside 134 (70-110)
[2024-02-06 11:39] LABS: POC Glucose,Bedside 160 (70-110)
[2024-02-06 11:39] LABS: POC Glucose,Bedside 170 (70-110)
--- NOTE | 2024-02-06 13:15 | P.PN_ITS ---
Subjective *Date: 02/06/24 *Time: 13:15 Interval history: Patient more awake, alert, responsive versus yesterday. Patient talkative, making eye contact, and able to answer simple questions today. Medical Exam Vital signs and Labs for Last 24 Hours: Vital Signs Temp Pulse Pulse Resp BP BP Pulse Ox 02/06/24 12:00 72 20 122/68 100 02/06/24 11:10 02/06/24 11:00 68 24 138/78 100 02/06/24 10:00 76 18 135/66 99 02/06/24 09:04 02/06/24 09:00 68 24 125/58 L 99 02/06/24 08:00 70 02/06/24 08:00 98.3 F 02/06/24 08:00 74 18 126/58 L 100 02/06/24 07:59 90 100 02/06/24 07:00 76 19 90/58 L 100 02/06/24 06:00 73 14 88/51 L 100 02/06/24 05:00 74 19 106/50 L 100 02/06/24 04:00 70 02/06/24 04:00 2 L 02/06/24 04:00 98.8 F 84 21 144/80 H 100 02/06/24 03:00 02/06/24 03:00 82 13 119/45 L 100 02/06/24 02:00 85 23 155/45 H 98 02/06/24 01:00 02/06/24 01:00 137 H 15 99/40 L 98 02/06/24 00:00 02/06/24 00:00 162 H 02/06/24 00:00 98.9 F 135 H 14 149/43 H 98 02/05/24 23:00 145 H 17 131/42 L 98 02/05/24 23:00 02/05/24 22:00 122 H 20 120/44 L 98 02/05/24 21:00 97 H 21 91/55 L 92 L 02/05/24 21:00 02/05/24 20:00 920 H 02/05/24 20:00 97.9 F 91 H 14 112/62 94 L 02/05/24 19:00 95 H 18 104/53 L 95 02/05/24 18:42 02/05/24 17:46 02/05/24 17:18 95 H 02/05/24 17:01 97.9 F 103 H 20 99/57 L 02/05/24 17:00 02/05/24 17:00 98.0 F 95 H 22 119/70 94 L 02/05/24 16:30 17 99/57 L 02/05/24 16:00 19 109/62 L 02/05/24 15:30 19 96/59 L 02/05/24 15:00 21 104/57 L 02/05/24 14:30 24 113/54 L 02/05/24 14:00 23 114/57 L 02/05/24 13:30 22 102/60 L 02/05/24 13:21 16 98/58 L O2 Del Method O2 Flow Rate 02/06/24 12:00 Nasal Cannula 2 02/06/24 11:10 Nasal Cannula 2 02/06/24 11:00 Nasal Cannula 2 02/06/24 10:00 Nasal Cannula 2 02/06/24 09:04 Nasal Cannula 2 02/06/24 09:00 Nasal Cannula 2 02/06/24 08:00 02/06/24 08:00 02/06/24 08:00 Nasal Cannula 2 02/06/24 07:59 Nasal Cannula 2 02/06/24 07:00 Nasal Cannula 2 02/06/24 06:00 Nasal Cannula 2 02/06/24 05:00 Nasal Cannula 2 02/06/24 04:00 02/06/24 04:00 Nasal Cannula 02/06/24 04:00 Nasal Cannula 2 02/06/24 03:00 Nasal Cannula 2 02/06/24 03:00 Nasal Cannula 2 02/06/24 02:00 Room Air 02/06/24 01:00 Nasal Cannula 2 02/06/24 01:00 Nasal Cannula 2 02/06/24 00:00 Nasal Cannula 2 02/06/24 00:00 02/06/24 00:00 Nasal Cannula 2 02/05/24 23:00 Nasal Cannula 2 02/05/24 23:00 Nasal Cannula 2 02/05/24 22:00 Nasal Cannula 2 02/05/24 21:00 Room Air 02/05/24 21:00 Room Air 02/05/24 20:00 02/05/24 20:00 Room Air 02/05/24 19:00 Room Air 02/05/24 18:42 Room Air 02/05/24 17:46 Room Air 02/05/24 17:18 02/05/24 17:01 Room Air 02/05/24 17:00 Room Air 02/05/24 17:00 Room Air 02/05/24 16:30 02/05/24 16:00 02/05/24 15:30 02/05/24 15:00 02/05/24 14:30 02/05/24 14:00 02/05/24 13:30 02/05/24 13:21 Intake and Output 02/05/24 02/06/24 02/06/24 23:59 07:59 15:59 Intake Total 5.308 / 9533.449 9999.672 / 2850.672 662 / 2850.672 Output Total 300 / 300 0 / 300 Balance 5.308 / 032.416 6390.672 / 2550.672 662 / 2550.672 Intake: Intake, Total IV Amount 5.308 / 4134.436 2700.672 / 2850.672 662 / 2850.672 Insulin Regular, Human 100 unit In 0.9 % Sodium Chloride 100 ml @ 0.1 UNITS/KG/HR 4.553 mls/ hr IV .[id number] ADAM Rx#:[id number] Lactated Ringers 1000ML 1,000 800 / 800 ml @ 150 mls/hr IV .Q6H40M ADAM Rx#:[id number] Magnesium Sulfate in Water 2 gm 50 / 50 In 50 ml @ 25 mls/hr IV ONCE ADAM Rx#:[id number] Meropenem 1 gm In 0.9 % Sodium 100 / 200 100 / 200 Chloride 100 ml @ 100 mls/hr IV Q8H ADAM Rx#:[id number] Sodium Chloride 0.45 % 1,000 ml 1200 / 1762 562 / 1762 @ 150 mls/hr IV .Q6H40M ADAM Rx #:[id number] Output: Output, Urine Amount 150 / 150 0 / 150 Output, Urine Amount (Catheter) 150 / 150 Estrada 150 / 150 Other: Number of Unmeasured Voids 0 Weight 43.545 kg 43.5 kg 43.5 kg Patient Weight 02/06/24 23:59 Weight 43.5 kg Laboratory Results - last 24 hr 02/05/24 10:28: Total Counted 100, Neutrophils % (Manual) 79 H, Lymphocytes % (Manual) 10, Monocytes % (Manual) 9, Eosinophils % (Manual) 1, Basophils % (Manual) 1.0, Platelet Estimate Normal, RBC Morphology Normal 02/05/24 13:29: Total Creatine Kinase 81, Troponin I 0.69 H 02/05/24 15:07: Lactate 1.5 02/05/24 15:14: Urine Color Yellow, Urine Appearance Clear, Urine pH 5.5, Ur Specific Purcell 1.020, Urine Protein Negative, Urine Glucose (UA) 3+, Urine Ketones Trace, Urine Blood 1+, Urine Nitrate Negative, Urine Bilirubin Negative, Urine Urobilinogen 0.2, Ur Leukocyte Esterase Negative, Urine RBC 20-50, Urine WBC 50-100, Ur Squamous Epith Cells 20-50, Urine Bacteria 3+ 02/05/24 15:32: Sodium 151 H*, Potassium 3.5, Chloride 115 H, Carbon Dioxide 25, Anion Gap 14.5, BUN 74 H, Creatinine 2.90 H, Estimated Creat Clear 11, Estimated GFR 16 L*, Est GFR ( Amer) 19 L*, Glucose 719 H*, Calcium 8.7 02/05/24 17:01: POC Glucose 543 H* 02/05/24 18:02: ABG Lactate 3.6 H 02/05/24 18:03: POC Glucose 491 H* 02/05/24 18:54: POC Glucose 457 H* 02/05/24 20:05: POC Glucose 364 H* 02/05/24 20:25: Urine Color Yellow, Urine Appearance Clear, Urine pH 5.5, Ur Specific Purcell 1.020, Urine Protein Negative, Urine Glucose (UA) 2+, Urine Ketones Trace, Urine Blood Trace-i, Urine Nitrate Negative, Urine Bilirubin Negative, Urine Urobilinogen 0.2, Ur Leukocyte Esterase Negative, Urine RBC 5- 10, Urine WBC 5-10, Ur Squamous Epith Cells 3-5, Urine Bacteria 1+ 02/05/24 20:45: Sodium 157 H*, Potassium 2.9 L*, Chloride 118 H, Carbon Dioxide 27, Anion Gap 14.9, BUN 65 H, Creatinine 2.40 H, Estimated Creat Clear 13, Estimated GFR 19 L*, Est GFR ( Amer) 23 L D, Glucose 365 H D, Calcium 9.3, Phosphorus 3.6 D, Magnesium 2.1, Troponin I 1.39 H, C-Reactive Protein 5.5 H, Procalcitonin 0.198 02/05/24 21:03: POC Glucose 320 H* 02/05/24 22:06: POC Glucose 257 H 02/05/24 23:15: POC Glucose 202 H 02/06/24 00:10: POC Glucose 142 H 02/06/24 01:24: POC Glucose 166 H 02/06/24 01:35: Sodium 154 H*, Potassium 3.6 D, Chloride 122 H, Carbon Dioxide 26, Anion Gap 9.6, BUN 58 H, Creatinine 2.10 H, Estimated Creat Clear 14, Estimated GFR 23 L, Est GFR ( Amer) 27 L, Glucose 181 H D, Calcium 8.9, Magnesium 2.8 H D, Troponin I 1.05 H 02/06/24 02:23: POC Glucose 172 H 02/06/24 04:37: POC Glucose 160 H 02/06/24 05:18: WBC 12.3 H D, RBC 3.61 L D, Hgb 10.9 L D, Hct 35.8 L, MCV 99.1 H , MCH 30.1, MCHC 30.4 L, RDW 15.2, Plt Count 176 D, MPV 8.8, Neut % (Auto) 75.2, Lymph % (Auto) 15.2, Trigg % (Auto) 6.4, Eos % (Auto) 2.5, Baso % (Auto) 0.6, Neut # (Auto) 9.2 H, Lymph # (Auto) 1.9, Trigg # (Auto) 0.8, Eos # (Auto) 0.3, Baso # (Auto) 0.1, Sodium 153 H*, Potassium 4.6 D, Chloride 123 H, Carbon Dioxide 29, Anion Gap 5.6, BUN 57 H, Creatinine 2.00 H, Estimated Creat Clear 15, Estimated GFR 24 L, Est GFR ( Amer) 29 L, Glucose 160 H, Lactate 1.0, Calcium 8.3 L, Total Bilirubin 0.6, Direct Bilirubin 0.5 H, Conjugated Bilirubin 0.0, Indirect Bilirubin 0.1, Unconjugated Bilirubin 0.1, AST 33 D, ALT 19 D, Alkaline Phosphatase 60, Troponin I 1.11 H, Total Protein 5.5 L, Albumin 2.9 L D , Triglycerides 331 H, Cholesterol 130 L, LDL Cholesterol Direct 57.65 L, VLDL Cholesterol 66 H, HDL Cholesterol 25 L, Cholesterol/HDL Ratio 5.2 H 02/06/24 06:12: POC Glucose 170 H 02/06/24 11:31: POC Glucose 134 H I & O for Labs for Last 24 Hours: Intake & Output 02/03/24 02/04/24 02/05/24 02/06/24 23:59 23:59 23:59 23:59 Intake Total 5.308 / 8737.206 1340.672 / 2850.672 Output Total 300 / 300 Balance 5.308 / 228.552 0954.672 / 2550.672 Weight 43.545 kg 43.5 kg Microbiology Reports for the Last 24 Hours: Microbiology 02/05/24 10:50 Blood Blood Culture - Preliminary NO GROWTH AFTER 24 HOURS 02/05/24 10:46 Blood Blood Culture - Preliminary NO GROWTH AFTER 24 HOURS Head: Present normocephalic Eyes: Present eye pain ENT: Present normal oropharynx Neck: Present normal inspection and full ROM Respiratory: Present CTA bilaterally Cardiac: Present Regular Rate GI: Present soft and normal bowel sounds Rectal (female): Present deferred (female): Present deferred Extremities: Present normal inspection and full ROM Skin: Present intact and dry Assessment and Plan *Assessment and plan (1) Hyperosmolar hyperglycemic state (HHS): Status: Acute Category: Medical Code(s): E11.00 - Type 2 diabetes mellitus with hyperosmolarity without nonketotic hyperglycemic-hyperosmolar coma (NKHHC) (2) Sepsis: Status: Acute Category: Medical Code(s): A41.9 - Sepsis, unspecified organism (3) DKA (diabetic ketoacidosis): Status: Acute Qualifiers: Diabetes mellitus type: due to underlying condition Diabetes mellitus complication detail: without coma Qualified Code(s): E08.10 - Diabetes mellitus due to underlying condition with ketoacidosis without coma Category: Medical Code(s): E11.10 - Type 2 diabetes mellitus with ketoacidosis without coma (4) Diabetes mellitus: Status: Acute Qualifiers: Diabetes mellitus type: type 2 Diabetes mellitus terminal superintendent insulin use: unspecified terminal superintendent insulin use status Diabetes mellitus complication status: without complication Qualified Code(s): E11.9 - Type 2 diabetes mellitus without complications Category: Medical Code(s): E11.9 - Type 2 diabetes mellitus without complications (5) Non-STEMI (non-ST elevated myocardial infarction): Status: Acute Category: Medical Code(s): I21.4 - Non-ST elevation (NSTEMI) myocardial infarction (6) Atrial fibrillation with RVR: Status: Acute Category: Medical Code(s): I48.91 - Unspecified atrial fibrillation Plan Hyperosmolar hyperglycemic syndrome: ?02/05 patient weaned from insulin drip overnight. Starting sliding scale insulin. Also starting glargine 10 units daily. Start starting diabetic diet. ?Admit to ICU, insulin drip, isotonic fluid rehydration, check BMPs every 4 x 4 Hypernatremia secondary to dehydration: ?02/05 transition from LR to 1/2 half-normal saline due to rising sodium level. Sodium levels now trending downward. ? Rehydrate with LR, serial BMPs A-fib with RVR: ?02/05 cardiology following. Improved with treatment of HHS, dehydration and infection. Echocardiogram done with results currently pending. ? Probably being exacerbated by genitourinary infection, dehydration,and HHS; or all 3 combined. Will treat each condition, then reevaluate. Cardiology consultation in progress. NEVILLE secondary to dehydration: ?02/05 improving with IV hydration ? Hoping patient suffering from prerenal azotemia. Rehydrate with LR and recheck. Possible UTI ?02/05 will await culture results then downgrade antibiotics once sensitivities available. - meropenum IV. Urine culture ordered by emergency room. Will follow results closely. Type II non-STEMI: ?Being followed by cardiology, cardiology consultation, serial troponins, aspirin daily, statin. Echocardiogram ordered for a.m. PPx: Lovenox subcutaneous Status DNR but family does require intubation if needed FEN: Start with clears and advance as tolerated Disposition: ? 02/05 will downgrade patient from ICU to stepdown today. Will probably further downgrade patient to MedSurg if patient continues to improve clinically. 35 minutes of critical care time spent with patient with Dr. Sánchez 02/06/2024
[2024-02-06] MEDS: FUROSEMIDE 20MG TABLET 20 MG PO (14:42)
[2024-02-06] MEDS: CITALOPRAM 40MG TABLET 40 MG PO (14:42)
[2024-02-06] MEDS: PANTOPRAZOLE 40MG TABLET 40 MG PO ×2 (14:43→21:34)
[2024-02-06] MEDS: LORATADINE 10MG TABLET 10 MG PO (14:43)
[2024-02-06] MEDS: MEMANTINE 10MG TABLET 10 MG PO ×2 (14:43→21:34)
[2024-02-06] MEDS: LEVOTHYROXINE 75MCG (0.075MG) TAB 75 MCG PO (14:43)
[2024-02-06] MEDS: METOPROLOL TARTRATE 25MG TABLET 25 MG PO ×2 (14:43→21:34)
[2024-02-06] MEDS: INSULIN GLARGINE 100 UNITS/ML 10ML VIAL 10 UNIT SQ (14:45)
[2024-02-06] MEDS: QUETIAPINE 25MG TABLET 12.5 MG PO ×2 (14:45→21:33)
[2024-02-06] MEDS: humaLOG 100 UNITS/ML 10ML VIAL (SSI) SQ ×2 (16:26→21:40)
[2024-02-06 16:29] LABS: POC Glucose,Bedside 233 (70-110)
--- NOTE | 2024-02-06 17:02 | PC.NURSE ---
pt has been alert to self this shift and will converse with staff when asked questions. pt appears slightly hard of hearing. pt had a bm this shift, pt is voiding yellow urine per mascorro. pt was able to get up to the chair with assist x 2. pt takes meds whole with applesauce. lung sounds are clear but diminished throughout. bowel sounds are active in all quads. no open areas/breakdown noted at this time.
[2024-02-06 20:25] LABS: Chloride 117 mmol/L (98-107); Potassium 4.2 mmoL/L (3.5-5.1); Sodium 141 mmol/L (136-145)
[2024-02-06 20:28] LABS: Anion Gap 10.2 mEq/L (5-15); Blood Urea Nitrogen 38 mg/dl (7-17); Calcium 7.5 mg/dl (8.4-10.2); Carbon Dioxide 18 mmol/L (22.0-30.0); Creatinine Clearance Estimated 23 mL/min (50-200); Estimated Glomerular Filt Rate 39 ml/min (>60); GFR (African American) 48 ML/MIN (>60); Glucose 287 mg/dl (74-100)
[2024-02-06] MEDS: ENOXAPARIN 60MG/0.6ML SYRINGE 45 MG SQ (21:32)
[2024-02-06] MEDS: ATORVASTATIN 40MG TABLET 40 MG PO (21:32)
[2024-02-06] MEDS: PRAVASTATIN 40MG TAB 40 MG PO (21:33)
[2024-02-06] MEDS: FAMOTIDINE 20MG TABLET 20 MG PO (21:34)
[2024-02-06] MEDS: DONEPEZIL 5MG TAB 5 MG PO (21:34)
[2024-02-06] MEDS: INSULIN GLARGINE 100 UNITS/ML 3ML FLEXPEN 10 UNIT SQ (21:40)
[2024-02-06 21:54] LABS: POC Glucose,Bedside 329 (70-110)
[2024-02-07] VITALS (7 sets, daily range): BP systolic 95–154; BP diastolic 46–78; PULSE 67–81; RESP 15–20; TEMP 36.3–37.7; O2SAT 90–97; BMI 17.6
[2024-02-07 01:19] LABS: POC Glucose,Bedside 236 (70-110)
[2024-02-07] MEDS: MEROPENEM 1 GM in 0.9 % SODIUM CHLORIDE 100 ML IV (02:10)
[2024-02-07] MEDS: PANTOPRAZOLE 40MG TABLET 40 MG PO (08:46)
[2024-02-07] MEDS: MEMANTINE 10MG TABLET 10 MG PO (08:46)
[2024-02-07] MEDS: CITALOPRAM 40MG TABLET 40 MG PO (08:46)
[2024-02-07] MEDS: AMLODIPINE 10MG TABLET 10 MG PO (08:46)
[2024-02-07] MEDS: LEVOTHYROXINE 75MCG (0.075MG) TAB 75 MCG PO (08:46)
[2024-02-07] MEDS: LORATADINE 10MG TABLET 10 MG PO (08:46)
[2024-02-07] MEDS: METOPROLOL TARTRATE 25MG TABLET 25 MG PO (08:46)
[2024-02-07] MEDS: ASPIRIN EC 81MG TABLET 81 MG PO (08:47)
[2024-02-07] MEDS: LISINOPRIL 20MG TABLET 40 MG PO (08:47)
[2024-02-07] MEDS: FUROSEMIDE 20MG TABLET 20 MG PO (08:47)
[2024-02-07] MEDS: QUETIAPINE 25MG TABLET 12.5 MG PO (08:47)
[2024-02-07 09:55] LABS: Basophils # 0.1 K/mm3 (0-0.2); Basophils % 0.7 % (0.1-2.0); Eosinophils # 0.4 K/mm3 (0.0-0.4); Eosinophils % 3.8 % (0.1-12.0); Hemoglobin 10.4 g/dL (12.2-16.2); Lymphocytes # 1.5 K/mm3 (0.7-4.5); Lymphocytes % 15.1 % (10-50); Mean Corpuscular HGB Conc 30.7 g/dL (31.8-35.4); Mean Corpuscular Hemoglobin 29.9 pg (27.0-31.2); Mean Corpuscular Volume 97.6 fl (81-99); Mean Platelet Volume 8.7 fl (7.4-10.4); Monocytes # 0.6 K/mm3 (0.1-1.0); Monocytes % 6.2 % (1.7-9.3); Neutrophils # 7.4 K/mm3 (1.8-7.8); Neutrophils % 74.3 % (37.0-80.0); Platelet Count 159 K/mm3 (142-424); Red Blood Count 3.49 M/mm3 (4.20-5.40); Red Cell Distribution Width 14.9 % (11.5-17.5); White Blood Count 9.9 K/mm3 (4.8-10.8)
[2024-02-07 09:56] LABS: Anion Gap 6.8 mEq/L (5-15); Blood Urea Nitrogen 26 mg/dl (7-17); Calcium 8.1 mg/dl (8.4-10.2); Carbon Dioxide 25 mmol/L (22.0-30.0); Chloride 114 mmol/L (98-107); Creatinine Clearance Estimated 25 mL/min (50-200); Estimated Glomerular Filt Rate 43 ml/min (>60); GFR (African American) 52 ML/MIN (>60); Glucose 148 mg/dl (74-100); Potassium 3.8 mmoL/L (3.5-5.1); Sodium 142 mmol/L (136-145)
[2024-02-07] MEDS: CEFTRIAXONE SODIUM 2 GM in 0.9 % SODIUM CHLORIDE 100 ML IV (10:48)
[2024-02-07] MEDS: FUROSEMIDE 40MG/4ML VIAL 40 MG IV (10:48)
[2024-02-07] MEDS: INSULIN GLARGINE 100 UNITS/ML 3ML FLEXPEN 4 UNIT SQ (10:59)
--- NOTE | 2024-02-07 11:05 | EXP.CARD.PN ---
Subjective Subjective Date: 02/07/24 Time: 09:30 Principal diagnosis: type II non-stemi, afib with rvr Interval history: This is an 83-year-old white female who was brought to the emergency department from the retirement and found to be in atrial fibrillation with RVR, had an elevated troponin and HHS. The patient has been treated with fluids and insulin. She is much more awake and alert today. She denies any chest pain, pressure, shortness of breath or edema. She denies any fever, chills, nausea, vomiting, diarrhea, PND orthopnea. She is able to answer all of my questions today and she is alert and oriented x 3. Exam Data for Last 24 hours Vital signs and Labs for Last 24 Hours: Temp Pulse Resp BP Pulse Ox O2 Del Method O2 Flow Rate 99.2 F 72 20 154/58 H 93 L Room Air 4 02/07/24 08:00 02/07/24 08:00 02/07/24 08:00 02/07/24 08:00 02/07/24 08:00 02/07/24 08:00 02/06/24 13:50 Laboratory Results - last 24 hr 02/06/24 04:37: POC Glucose 160 H 02/06/24 06:12: POC Glucose 170 H 02/06/24 11:31: POC Glucose 134 H 02/06/24 16:21: POC Glucose 233 H 02/06/24 19:39: Sodium 141, Potassium 4.2, Chloride 117 H, Carbon Dioxide 18 L, Anion Gap 10.2, BUN 38 H D, Creatinine 1.30 H D, Estimated Creat Clear 23, Estimated GFR 39 L, Est GFR ( Amer) 48 L D, Glucose 287 H D, Calcium 7.5 L 02/06/24 21:31: POC Glucose 329 H* 02/07/24 01:11: POC Glucose 236 H 02/07/24 09:35: WBC 9.9, RBC 3.49 L, Hgb 10.4 L, Hct 34.0 L, MCV 97.6, MCH 29.9, MCHC 30.7 L, RDW 14.9, Plt Count 159, MPV 8.7, Neut % (Auto) 74.3, Lymph % (Auto) 15.1, [place] % (Auto) 6.2, Eos % (Auto) 3.8, Baso % (Auto) 0.7, Neut # (Auto) 7.4, Lymph # (Auto) 1.5, [place] # (Auto) 0.6, Eos # (Auto) 0.4, Baso # (Auto) 0.1, Sodium 142, Potassium 3.8, Chloride 114 H, Carbon Dioxide 25, Anion Gap 6.8, BUN 26 H D, Creatinine 1.20 H, Estimated Creat Clear 25, Estimated GFR 43 L, Est GFR ( Amer) 52 L, Glucose 148 H D, Calcium 8.1 L I & O for Last 24 hours: Intake & Output 02/04/24 02/05/24 02/06/24 02/07/24 23:59 23:59 23:59 23:59 Intake Total 5.308 / 2746.667 2204.672 / 4372.672 360 / 360 Output Total 1930 / 2130 750 / 750 Balance 5.308 / 978.643 3547.672 / 2242.672 -390 / -390 Weight 96 lb 95 lb 14.417 oz 95 lb 14.417 oz Microbiology Reports for the Last 24 Hours: Microbiology 02/05/24 10:50 Blood Blood Culture - Preliminary NO GROWTH AFTER 48 HOURS 02/05/24 10:46 Blood Blood Culture - Preliminary NO GROWTH AFTER 48 HOURS Constitutional Constitutional: no acute distress, thin and chronically ill appearing *Routine HEENT Exam Head: Present normocephalic and atraumatic ENT: Present mucous membranes moist *Routine Neck Exam Neck: Present supple, full ROM and normal carotid upstroke; Absent JVD, carotid bruit or lymphadenopathy *Routine Respiratory Exam Respiratory: Present CTA bilaterally, normal respiratory effort, able to speak in complete sentences and symmetric chest movement *Routine Cardiovascular Exam Cardiovascular: Present Normal S1, Normal S2, tachycardia and irregularly irregular; Absent murmur or gallop *Routine Abdominal Exam Abdominal: Present soft and normoactive bowel sounds; Absent tenderness, distended or organomegaly *Routine Extremities Exam Extremities: Present full ROM, pulses intact and normal capillary refill; Absent cyanosis, clubbing or edema *Routine Skin Exam Skin: Present intact and warm; Absent erythema *Routine Neurological Exam Neurological: Present alert, oriented X3 and CN II-XII intact; Absent sensory deficit or motor deficit Routine Psychiatric Exam Psychiatric: Present normal affect Progress Note: A&P Assessment and plan (1) Non-STEMI (non-ST elevated myocardial infarction): Status: Acute (2) Hyperosmolar hyperglycemic state (HHS): Status: Acute (3) Atrial fibrillation with RVR: Status: Acute (4) Sepsis: Status: Acute (5) Diabetes mellitus: Status: Acute (6) Acute kidney injury: Status: Acute (7) Hiatal hernia: Status: Acute Assessment and Plan Assessment and Plan for All Diagnoses:: Plan: 1. The patient was admitted to the hospital with sepsis, HHS, elevated troponin and acute kidney injury. She did meet the criteria for sepsis and had an elevated lactic acid. She was started on IV antibiotics. Will defer this to the hospitalist. 2. On arrival the patient did have a glucose of 858. She had HHS. She was treated with fluids and insulin. Will defer this to the hospitalist as well. 3. On admission the patient was in atrial fibrillation with RVR. Her rate did improve with antibiotics. She has converted to sinus rhythm. She has been started on metoprolol 25 mg p.o. twice daily for suppression of the atrial fibrillation. 4. The patient did have an elevated troponin consistent with a non-STEMI. She had some ST depression on her EKG as well. This was most likely a type II non-STEMI secondary to HHS and atrial fibrillation with RVR. No plans for left cardiac catheterization at this time. She would benefit from an outpatient ischemic evaluation once she is discharged from the hospital. 5. Continue aspirin and Lipitor for the non-STEMI. 6. Her echocardiogram shows a normal ejection fraction and a slightly elevated RVSP. 7. Her blood pressure is on the low side this morning. Stop amlodipine. Continue lisinopril and current dose of metoprolol. 8. Her LDL goal is less than 55. Her LDL is 57. She is on Lipitor. 9. The patient will need long-term anticoagulation secondary to the atrial fibrillation. She is currently on Lovenox. We do recommend switching her over to Eliquis 2.5 mg p.o. twice daily prior to discharge home. 10. No further recommendations at this time from a cardiac standpoint. If any other cardiac issues arise throughout the patient's hospitalization please feel free to contact cardiology again. She will need to follow-up in cardiology clinic in 1 to 2 weeks on an outpatient basis for further ischemic evaluation. 11. The patient will need to be discharged on the following cardiac medications when she is ready for discharge: Aspirin 81 mg daily, Lipitor 40 mg p.o. nightly, Lasix 20 mg daily, lisinopril 40 mg daily, metoprolol 25 mg p.o. twice daily, Protonix 40 mg p.o. twice daily. Thank you for the opportunity to help participate the care of this patient. All recommendations and orders are per Dr. Rosado.
[2024-02-07] MEDS: ALBUMIN 25% (12.5 GM) SOLN 50ML BOTTLE IV (12:19)
--- NOTE | 2024-02-07 13:08 | EXP.DC.SUM ---
General Admission date:: 02/05/24 Discharge date: 02/07/24 HPI HPI HPI: Really nice patient with past medical history of diabetes, A-fib with RVR presents from [facility]. Patient extremely poor historian, but noted to have elevated troponins, and blood glucose 800 mg/dL in emergency room. Patient subsequently admitted for hyperosmolar hyperglycemic syndrome, and type II demand notes STEMI. Patient seen by cardiology in emergency room. Denies any acute complaints when evaluated by Dr. Sánchez. Disoriented to time and location but oriented to self. Hospital Course Hospital Course Hospital Course: Patient presented to hospital confused, and agitated. Patient rapidly diagnosed with hyperglycemic hyperosmolar syndrome due to uncontrolled diabetes. Patient also diagnosed with hyppernatremia related dehydration, non-STEMI, and urinary tract infection. Patient maintained on IV antibiotics throughout hospitalization. Urine culture positive for E. coli sensitive to cephalosporins. Patient subsequently downgraded to IV Rocephin, then ultimately discharged back to [facility] on cefdinir. Patient's mentation back to baseline by time of hospital discharge. Patient's hypernatremia related dehydration initially treated with LR at time of hospital presentation. Patient's sodium is trended upward slightly on LR, so patient eventually transition to 1 half-normal saline. Patient sodium level normal by time of hospital discharge and patient euvolemic. Patient advised to follow-up with PCP, endocrinology, and renal sustainable design consultant in future for further hyponatremia management. Also special note patient's NEVILLE resolved with crystalloid fluid administration during hospitalization. Patient also suffered from hyperosmolar hyperglycemic syndrome related to uncontrolled diabetes at time of hospital presentation. Patient's metformin/Tradjenta discontinued at time of hospitalization. Patient started on insulin drip, then transition to glargine twice daily and short acting lispro 3 times daily therapy. Patient discharged back to [facility] on glargine/lispro combo, and with instructions to follow-up with primary care physician endocrinology for further diabetes management. Exam Data for Last 24 hours Vital signs and Labs for Last 24 Hours: Temp Pulse Resp BP Pulse Ox O2 Del Method O2 Flow Rate 99.2 F 72 20 154/58 H 93 L Room Air 4 02/07/24 08:00 02/07/24 08:00 02/07/24 08:00 02/07/24 08:00 02/07/24 08:00 02/07/24 11:05 02/06/24 13:50 Laboratory Results - last 24 hr 02/06/24 16:21: POC Glucose 233 H 02/06/24 19:39: Sodium 141, Potassium 4.2, Chloride 117 H, Carbon Dioxide 18 L, Anion Gap 10.2, BUN 38 H D, Creatinine 1.30 H D, Estimated Creat Clear 23, Estimated GFR 39 L, Est GFR ( Amer) 48 L D, Glucose 287 H D, Calcium 7.5 L 02/06/24 21:31: POC Glucose 329 H* 02/07/24 01:11: POC Glucose 236 H 02/07/24 09:35: WBC 9.9, RBC 3.49 L, Hgb 10.4 L, Hct 34.0 L, MCV 97.6, MCH 29.9, MCHC 30.7 L, RDW 14.9, Plt Count 159, MPV 8.7, Neut % (Auto) 74.3, Lymph % (Auto) 15.1, [place] % (Auto) 6.2, Eos % (Auto) 3.8, Baso % (Auto) 0.7, Neut # (Auto) 7.4, Lymph # (Auto) 1.5, [place] # (Auto) 0.6, Eos # (Auto) 0.4, Baso # (Auto) 0.1, Sodium 142, Potassium 3.8, Chloride 114 H, Carbon Dioxide 25, Anion Gap 6.8, BUN 26 H D, Creatinine 1.20 H, Estimated Creat Clear 25, Estimated GFR 43 L, Est GFR ( Amer) 52 L, Glucose 148 H D, Calcium 8.1 L I & O for Last 24 hours: Intake & Output 02/04/24 02/05/24 02/06/24 02/07/24 23:59 23:59 23:59 23:59 Intake Total 5.308 / 5293.857 7455.672 / 4372.672 360 / 360 Output Total 1930 / 2130 1350 / 1350 Balance 5.308 / 939.124 4840.672 / 2242.672 -990 / -990 Weight 43.545 kg 43.5 kg 43.5 kg Microbiology Reports for the Last 24 Hours: Microbiology 02/05/24 10:50 Blood Blood Culture - Preliminary NO GROWTH AFTER 48 HOURS 02/05/24 10:46 Blood Blood Culture - Preliminary NO GROWTH AFTER 48 HOURS Constitutional Constitutional: no acute distress *Routine HEENT Exam Head: Present normocephalic Eye: Present EOMI and normal accommodation ENT: Present mucous membranes moist *Routine Neck Exam Neck: Present supple and full ROM *Routine Respiratory Exam Respiratory: Present CTA bilaterally *Routine Cardiovascular Exam Cardiovascular: Present RRR, Normal S1 and Normal S2 *Routine Abdominal Exam Abdominal: Present soft and normoactive bowel sounds *Routine Extremities Exam Extremities: Present normal capillary refill *Routine Skin Exam Skin: Present intact and dry *Routine Neurological Exam Neurological: Present alert and oriented X3 Results Data Completed and Pending Labs on day of discharge: Labs from last 24 hours 02/07/24 02/07/24 02/06/24 09:35 01:11 21:31 WBC 9.9 RBC 3.49 L Hgb 10.4 L Hct 34.0 L MCV 97.6 MCH 29.9 MCHC 30.7 L RDW 14.9 Plt Count 159 MPV 8.7 Neut % (Auto) 74.3 Lymph % (Auto) 15.1 [place] % (Auto) 6.2 Eos % (Auto) 3.8 Baso % (Auto) 0.7 Neut # (Auto) 7.4 Lymph # (Auto) 1.5 [place] # (Auto) 0.6 Eos # (Auto) 0.4 Baso # (Auto) 0.1 Sodium 142 Potassium 3.8 Chloride 114 H Carbon Dioxide 25 Anion Gap 6.8 BUN 26 H D Creatinine 1.20 H Estimated Creat Clear 25 Estimated GFR 43 L Est GFR ( Amer) 52 L Glucose 148 H D POC Glucose 236 H 329 H* Calcium 8.1 L 02/06/24 02/06/24 19:39 16:21 WBC RBC Hgb Hct MCV MCH MCHC RDW Plt Count MPV Neut % (Auto) Lymph % (Auto) [place] % (Auto) Eos % (Auto) Baso % (Auto) Neut # (Auto) Lymph # (Auto) [place] # (Auto) Eos # (Auto) Baso # (Auto) Sodium 141 Potassium 4.2 Chloride 117 H Carbon Dioxide 18 L Anion Gap 10.2 BUN 38 H D Creatinine 1.30 H D Estimated Creat Clear 23 Estimated GFR 39 L Est GFR ( Amer) 48 L D Glucose 287 H D POC Glucose 233 H Calcium 7.5 L Preliminary micro results at discharge 02/05/24 10:50 Blood Culture - Preliminary Blood NO GROWTH AFTER 48 HOURS 02/05/24 10:46 Blood Culture - Preliminary Blood NO GROWTH AFTER 48 HOURS DS: Diagnosis Discharge Diagnosis (1) Non-STEMI (non-ST elevated myocardial infarction): Status: Acute Code(s): I21.4 - Non-ST elevation (NSTEMI) myocardial infarction (2) Hyperosmolar hyperglycemic state (HHS): Status: Acute Code(s): E11.00 - Type 2 diabetes mellitus with hyperosmolarity without nonketotic hyperglycemic-hyperosmolar coma (NKHHC) (3) Atrial fibrillation with RVR: Status: Acute Code(s): I48.91 - Unspecified atrial fibrillation (4) Sepsis: Status: Acute Code(s): A41.9 - Sepsis, unspecified organism (5) Diabetes mellitus: Status: Acute Code(s): E11.9 - Type 2 diabetes mellitus without complications Qualifiers: Diabetes mellitus complication status: without complication Diabetes mellitus buttermaker helper insulin use: unspecified correction insulin use status Diabetes mellitus type: type 2 Qualified Code(s): E11.9 - Type 2 diabetes mellitus without complications (6) Acute kidney injury: Status: Acute Code(s): N17.9 - Acute kidney failure, unspecified (7) Hiatal hernia: Status: Acute Code(s): K44.9 - Diaphragmatic hernia without obstruction or gangrene Meds Home Medications and Allergies Home Medications ?Medication ?Instructions ?Recorded ?Confirmed ?Type acetaminophen 500 mg tablet 500 mg PO Q4HP PRN Mild Pain 02/05/24 02/06/24 History (Scale Score 1-4) amlodipine 10 mg tablet 10 mg PO DAILY 02/05/24 02/05/24 History donepezil 5 mg tablet 5 mg PO HS 02/05/24 02/06/24 History escitalopram oxalate 20 mg tablet 20 mg PO DAILY 02/05/24 02/05/24 History famotidine 40 mg tablet 40 mg PO HS 02/05/24 02/05/24 History furosemide 20 mg tablet 20 mg PO DAILY 02/05/24 02/05/24 History levothyroxine 75 mcg tablet 75 mcg PO DAILY 02/05/24 02/05/24 History lisinopril 40 mg tablet 40 mg PO DAILY 02/05/24 02/05/24 History loratadine 10 mg tablet 10 mg PO DAILY 02/05/24 02/05/24 History memantine 10 mg tablet 10 mg PO BID 02/05/24 02/05/24 History metoprolol tartrate 25 mg tablet 25 mg PO BID 02/05/24 02/05/24 History omeprazole 20 mg capsule,delayed 20 mg PO BID gerd 02/05/24 02/05/24 History release quetiapine 25 mg tablet 12.5 mg PO BID 02/05/24 02/05/24 History simvastatin 20 mg tablet 20 mg PO HS 02/05/24 02/05/24 History cefdinir 300 mg capsule 300 mg PO BID #14 caps 02/07/24 Rx insulin aspart U-100 100 unit/mL 3 unit (0.03 mL) SQ AC #15 mL 02/07/24 Rx (3 mL) subcutaneous pen insulin glargine 100 unit/mL (3 10 unit (0.1 mL) SQ BIDWMEAL #15 mL 02/07/24 Rx mL) subcutaneous pen (Lantus Solostar U-100 Insulin) New Prescriptions to Start Prescriptions: cefdinir Sánchez,Arnoldo insulin aspart U-100 Sánchez,[place] insulin glargine [Lantus Solostar U-100 Insulin] Arnoldo Sánchez Allergies Allergy/AdvReac Type Severity Reaction Status Date / Time No Known Allergies Allergy Unverified 06/04/17 14:59 Discharge Plan Disposition Patient Disposition: Xfer SNF Condition: Fair Discharge Order Discharge Orders: Discharge Order (Routine); Ordered 02/07/24 Ordered By: Arnoldo Sánchez Follow up Plan Follow up with: Chaz Rosado MD [Staff Physician] - 2 weeks (Cared for for non-STEMI, HHS, dehydration, UTI during current admission. Please follow-up with outpatient. Thank you) Valentina Yeh MD [Referring] - 2 weeks ProviderNahun MD [Primary Care Provider] - 1 week (Status post hospitalization for hyperosmolar hyperglycemic syndrome, UTI, and dehydration care) Nawaf Kaba MD [Referring] - 2 weeks (Admitted to [facility] from [facility] with NEVILLE, HHS, dehydration. Please follow NEVILLE superimposed on CKD. Thank you) Prescriptions/Medication Reconciliation: New insulin glargine [Lantus Solostar U-100 Insulin] 100 unit/mL (3 mL) Insulin Pen 10 unit SQ BIDWMEAL Qty: 15 7RF insulin aspart U-100 100 unit/mL (3 mL) insulin pen 3 unit SQ AC Qty: 15 5RF cefdinir 300 mg capsule 300 mg PO BID Qty: 14 0RF Continued quetiapine 25 mg tablet 12.5 mg PO BID Rx Instructions: administer for behavioral disturbances donepezil 5 mg tablet 5 mg PO HS famotidine 40 mg tablet 40 mg PO HS acetaminophen 500 mg tablet 500 mg PO Q4HP PRN (Reason: Mild Pain (Scale Score 1-4)) levothyroxine 75 mcg tablet 75 mcg PO DAILY amlodipine 10 mg tablet 10 mg PO DAILY simvastatin 20 mg tablet 20 mg PO HS omeprazole 20 mg capsule,delayed release(DR/EC) 20 mg PO BID furosemide 20 mg tablet 20 mg PO DAILY lisinopril 40 mg tablet 40 mg PO DAILY loratadine 10 mg tablet 10 mg PO DAILY escitalopram oxalate 20 mg tablet 20 mg PO DAILY memantine 10 mg tablet 10 mg PO BID metoprolol tartrate 25 mg tablet 25 mg PO BID Discontinued metformin 500 mg tablet 500 mg PO BID Tradjenta 5 mg tablet 5 mg PO DAILY Problem Reconciliation Problems Reviewed?: Yes Patient Discharge Instructions ACTIVITY: Continue current activity DIET: continue same diet Patient Instructions: Sepsis, Hyperosmolar Hyperglycemic State, Diabetic Ketoacidosis Print Language: Slovak Providers Primary Care Provider: Provider,Referral Admit Provider: Arnoldo Sánchez Attending Provider: Arnoldo Sánchez
[2024-02-07 14:37] LABS: Hemoglobin A1C 9.1 % (4.0-6.0)
[2024-02-07] MEDS: humaLOG 100 UNITS/ML 10ML VIAL (SSI) SQ (16:45)
[2024-02-07 16:47] LABS: POC Glucose,Bedside 225 (70-110)
[2024-02-07] MEDS: INSULIN GLARGINE 100 UNITS/ML 3ML FLEXPEN 14 UNIT SQ (17:34)
--- NOTE | 2024-02-07 18:23 | PC.NURSE ---
PT RECEIVED FROM [facility] AROUND 1200. PT HAS BEEN SITTING UP IN BED TOLERATING FOOD THIS SHIFT. INSULIN ADMINISTERED PER AUG. PT HAS NOT COMPLAINED OF PAIN. PT HAS DISCHARGE ORDERS TO GO BACK TO [facility]. REPORT CALLED, ALL PAPERWORK FILLED OUT. WAITING FOR EMS TO ARRIVE. PT HAS NO COMPLAINTS AT THIS TIME. BED LOW AND LOCKED AND CALL LIGHT IN REACH.
[2024-02-09 06:39] LABS: POC Glucose,Bedside 110 (70-110)
--- NOTE | 2024-02-10 16:21 | PC.NURSE ---
URINE CULTURE DISCUSSED WITH DR JOEL, HOSPITALIST. ORDERS FOR ERTAPENEM 1GR IV DAILY X 10 DAYS. SPOKE WITH SAHIL AT [facility]
== END 2024-02-07 20:20 | DRG 637 ==
LOC: ER 12:05 → 2ND 16:59
PROVIDERS: Nurse Practitioner Family; Admitting Provider Internal Medicine; Emergency Provider Emergency Medicine; Visit Provider Internal Medicine
DX: I21.A1 Myocardial infarction type 2 (principal); N17.9 Acute kidney failure, unspecified; E11.00 Type 2 diabetes mellitus with hyperosmolarity without nonketotic hyperglycemic-hyperosmolar coma (NKHHC); I48.91 Unspecified atrial fibrillation; Z79.899 Other long term (current) drug therapy; Z79.4 Long term (current) use of insulin; N18.9 Chronic kidney disease, unspecified; E11.22 Type 2 diabetes mellitus with diabetic chronic kidney disease; I12.9 Hypertensive chronic kidney disease with stage 1 through stage 4 chronic kidney disease, or unspecified chronic kidney disease
CPT/HCPCS: 36415; 51702; 70450; 71250; 74176; 80048; 80050; 80053; 80061; 80076; 81001; 82009; 82550; 82803; 82962; 83036; 83605; 83735; 83880; 83930; 84100; 84145; 84439; 84443; 84484; 85007; 85025; 85610; 86140; 87040; 87086; 87088; 87186; 93005; 93306; 99285; J0696; J1650; J1940; J2185; J2543; J3370; J3475; J7120; P9047

== ENCOUNTER 2024-06-07 19:04 | Emergency (ER) | payer MEDICARE, MEDICAID, SELFPAY ==
--- NOTE | 2024-06-07 19:07 | ED_ITS ---
Discharge Plan Disposition Patient Disposition: Xfer SNF Condition: Good Prescriptions Prescriptions: No Action quetiapine 25 mg tablet 12.5 mg PO BID Rx Instructions: administer for behavioral disturbances donepezil 5 mg tablet 5 mg PO HS famotidine 40 mg tablet 40 mg PO HS acetaminophen 500 mg tablet 500 mg PO Q4HP PRN (Reason: Mild Pain (Scale Score 1-4)) levothyroxine 75 mcg tablet 75 mcg PO DAILY amlodipine 10 mg tablet 10 mg PO DAILY simvastatin 20 mg tablet 20 mg PO HS omeprazole 20 mg capsule,delayed release(DR/EC) 20 mg PO BID furosemide 20 mg tablet 20 mg PO DAILY lisinopril 40 mg tablet 40 mg PO DAILY loratadine 10 mg tablet 10 mg PO DAILY escitalopram oxalate 20 mg tablet 20 mg PO DAILY memantine 10 mg tablet 10 mg PO BID metoprolol tartrate 25 mg tablet 25 mg PO BID insulin glargine [Lantus Solostar U-100 Insulin] 100 unit/mL (3 mL) Insulin Pen 10 unit SQ BIDWMEAL Qty: 15 7RF insulin aspart U-100 100 unit/mL (3 mL) insulin pen 3 unit SQ AC Qty: 15 5RF cefdinir 300 mg capsule 300 mg PO BID Qty: 14 0RF Referrals Follow up/Referrals: Paco Fuller II, MD [Staff Physician] - See instructions Provider,MD Nahun [Primary Care Provider] - See instructions Activity Restrictions/Add. Instructions Additional Instructions/Restrictions: Make sure you use your dentures to chew all food. Follow-up with your PCP for no improvement or worsening signs or symptoms as needed. Follow-up with primary care provider and GI for abdominal MRI. Clinical Impressions Clinical Impression: Mass of pancreas Vomiting Qualifiers: Vomiting type: unspecified Nausea presence: without nausea Qualified Code(s): R11.11 - Vomiting without nausea Print Language Print Language: Syriac Discharge ED Provider: Александр Albright General Adult HPI <MARYCRUZ Regan - Last Filed: 06/07/24 20:32> General Chief complaint: Recheck/Abnormal Lab/Rx Stated complaint: choking Time Seen by Provider: 06/07/24 19:07 History of Present Illness HPI narrative: Patient presents for evaluation initially of choking . EMS was called as patient possibly choked according to [facility] staff. However upon further interview patient was actually eating whole apple slices without her dentures. She had an episode of emesis where she vomited up a whole slice of apples. She never had actual choking or aspiration. She denies any complaints currently has not required oxygen supplementation has no increased work of breathing chest pain fever chills hemoptysis hematochezia melena hematemesis Related Data Home Medications ?Medication ?Instructions ?Recorded ?Confirmed acetaminophen 500 mg tablet 500 mg PO Q4HP PRN Mild Pain 02/05/24 02/06/24 (Scale Score 1-4) amlodipine 10 mg tablet 10 mg PO DAILY 02/05/24 02/05/24 donepezil 5 mg tablet 5 mg PO HS 02/05/24 02/06/24 escitalopram oxalate 20 mg tablet 20 mg PO DAILY 02/05/24 02/05/24 famotidine 40 mg tablet 40 mg PO HS 02/05/24 02/05/24 furosemide 20 mg tablet 20 mg PO DAILY 02/05/24 02/05/24 levothyroxine 75 mcg tablet 75 mcg PO DAILY 02/05/24 02/05/24 lisinopril 40 mg tablet 40 mg PO DAILY 02/05/24 02/05/24 loratadine 10 mg tablet 10 mg PO DAILY 02/05/24 02/05/24 memantine 10 mg tablet 10 mg PO BID 02/05/24 02/05/24 metoprolol tartrate 25 mg tablet 25 mg PO BID 02/05/24 02/05/24 omeprazole 20 mg capsule,delayed 20 mg PO BID gerd 02/05/24 02/05/24 release quetiapine 25 mg tablet 12.5 mg PO BID 02/05/24 02/05/24 simvastatin 20 mg tablet 20 mg PO HS 02/05/24 02/05/24 Previous Rx's ?Medication ?Instructions ?Recorded cefdinir 300 mg capsule 300 mg PO BID #14 caps 02/07/24 insulin aspart U-100 100 unit/mL 3 unit (0.03 mL) SQ AC #15 mL 02/07/24 (3 mL) subcutaneous pen insulin glargine 100 unit/mL (3 10 unit (0.1 mL) SQ BIDWMEAL #15 mL 02/07/24 mL) subcutaneous pen (Lantus Solostar U-100 Insulin) Allergies Allergy/AdvReac Type Severity Reaction Status Date / Time No Known Allergies Allergy Verified 06/07/24 19:18 [facility] <MARYCRUZ Regan - Last Filed: 06/07/24 20:32> [facility] Disclaimer: The information contained in this section may have been updated after the patient was seen, as this information can be updated by other users. Medical History (Updated 06/07/24 @ 21:46 by Александр Albright MD) Hemorrhoids GERD (gastroesophageal reflux disease) Essential hypertension Major depressive disorder Hyperlipidemia Hypothyroidism Foot drop, right Chronic kidney disease Cerebrovascular disease Dementia DKA (diabetic ketoacidosis) Diabetes mellitus Hiatal hernia Acute kidney injury Sepsis Atrial fibrillation with RVR Non-STEMI (non-ST elevated myocardial infarction) Family History (Updated 02/05/24 @ 17:51 by Elvia Hendrickson, NICOLAS) Other No significant family history Social History (Updated 02/05/24 @ 17:52 by Elvia Hendrickson, NICOLAS) Smoking Status: Unknown if ever smoked alcohol intake: never current occupational status: other Travel in the last 8 weeks: None Other Medical History Have you received the Flu Vaccine for this season: No Have you received the Pneumonia Vaccine: No <MARYCRUZ Regan - Last Filed: 06/07/24 20:32> ROS Obtained: Yes Systems reviewed as appropriate & no additional complaints except as documented Physical Exam <MARYCRUZ Regan - Last Filed: 06/07/24 20:32> General General appearance: alert and in no apparent distress Head Head exam: atraumatic and normal inspection Neck Neck exam: Present full ROM Respiratory Respiratory exam: Present normal lung sounds bilaterally Cardiovascular Cardiovascular exam: Present regular rate Neurological Exam Neurological exam: Present alert and oriented X3 Medical Decision Making <MARYCRUZ Regan - Last Filed: 06/07/24 20:32> Medical Records Medical records reviewed: Yes I reviewed the patient's medical records. Screening: Per USPSTF and CDC recommendations, given the prevalence of disease in our region, it is our hospital?s policy to screen for HIV and viral Hepatitis for all patients aged 18 and over and those with ongoing risk factors. Nitish Inquiry Pt receiving controlled substance: No Vital Signs: 06/07/24 19:10 06/07/24 19:30 06/07/24 21:01 Temperature 98.6 F 97.9 F Temperature Source Oral Oral Pulse Rate 74 74 Pulse Rate [Left] 72 Respiratory Rate 18 14 Blood Pressure 150/76 H 124/74 Blood Pressure [Right Arm] 158/70 H Blood Pressure Mean [Right Arm] 99 Blood Pressure Source Automatic Cuff Blood Pressure Source [Right Arm] Automatic Cuff Blood Pressure Position Supine Blood Pressure Position [Right Arm] Sitting 02 Sat by Pulse Oximetry 97 98 Oxygen Delivery Method Room Air Room Air Orders (Tests/Meds): ORDERS Category Date Time Status CT chest wo con Stat Cat Scan 06/07/24 19:27 Completed Chest XR 2 view (NOT portable) [XR chest 2V] Stat Exams 06/07/24 19:08 Completed Medical Decision Narrative: In summary patient is a 84-year-old female who presents to the emergency department for evaluation of vomiting. Patient is hemodynamically stable upon arrival, afebrile. Physical exam is remarkable for normal breath sounds normal phonation normal speech ability to swallow oral intake delivered by myself, no chest pain no abdominal pain satting at 97% on room air. Differential diagnosis includes vomiting versus possible aspiration. Initial workup will be conducted with initially plain film chest x-ray. Initial interventions were considered however patient has no complaints currently thus deferred for now. Initial workup reviewed by me and her plain film chest x-ray is uninterpretable for any aspiration pneumonitis due to rotation and body habitus. Given that I have ordered a CT scan Noncon of the chest. My informal interpretation of that shows a thoracic stomach but no obvious aspiration pneumonitis nor any foreign body in her esophagus or rhonchi. Upon repeat evaluation remains hemodynamically stable satting at 98% on room air and still tolerant of oral intake. Given this patient is appropriate for discharge with choking precautions and recommendations to utilize her dentures for all food intake. <Александр Albright MD - Last Filed: 06/11/24 07:52> Vital Signs: 06/07/24 19:10 06/07/24 19:30 06/07/24 21:01 Temperature 98.6 F 97.9 F Temperature Source Oral Oral Pulse Rate 74 74 Pulse Rate [Left] 72 Respiratory Rate 18 14 Blood Pressure 150/76 H 124/74 Blood Pressure [Right Arm] 158/70 H Blood Pressure Mean [Right Arm] 99 Blood Pressure Source Automatic Cuff Blood Pressure Source [Right Arm] Automatic Cuff Blood Pressure Position Supine Blood Pressure Position [Right Arm] Sitting 02 Sat by Pulse Oximetry 97 98 Oxygen Delivery Method Room Air Room Air Orders (Tests/Meds): ORDERS Category Date Time Status CT chest wo con Stat Cat Scan 06/07/24 19:27 Completed Chest XR 2 view (NOT portable) [XR chest 2V] Stat Exams 06/07/24 19:08 Completed Medical Decision Narrative: In summary patient is a 84-year-old female who presents to the emergency department for evaluation of vomiting. Patient is hemodynamically stable upon arrival, afebrile. Physical exam is remarkable for normal breath sounds normal phonation normal speech ability to swallow oral intake delivered by myself, no chest pain no abdominal pain satting at 97% on room air. Differential diagnosis includes vomiting versus possible aspiration. Initial workup will be conducted with initially plain film chest x-ray. Initial interventions were considered however patient has no complaints currently thus deferred for now. Initial workup reviewed by me and her plain film chest x-ray is uninterpretable for any aspiration pneumonitis due to rotation and body habitus. Given that I have ordered a CT scan Noncon of the chest. My informal interpretation of that shows a thoracic stomach but no obvious aspiration pneumonitis nor any foreign body in her esophagus or rhonchi. Upon repeat evaluation remains hemodynamically stable satting at 98% on room air and still tolerant of oral intake. Given this patient is appropriate for discharge with choking precautions and recommendations to utilize her dentures for all food intake. I was consulted by the DICKSON, and we discussed the complexity of the problems being addressed. I approved the treatment and management plan for this patient's care in the Emergency Department, thus performing a substantive portion of the medical decision making. Александр Albright MD Critical Care <MARYCRUZ Regan - Last Filed: 06/07/24 20:32> Critical Care Time Critical Care Time: No
--- NOTE | 2024-06-07 19:08 | XR_ITS ---
PROCEDURE INFORMATION: Exam: XR Chest Exam date and time: 06/07/2024 7:05 PM Age: 84 years old Clinical indication: Other: Possible aspiration TECHNIQUE: Imaging protocol: Radiologic exam of the chest. Views: 2 views. Total images: 2 COMPARISON: CT CHEST WO CON 02/05/2024 11:51 AM FINDINGS: Lungs: Unremarkable. No consolidation. No pulmonary vascular congestion or edema. Pleural spaces: Unremarkable. No pleural effusion. No pneumothorax. Heart/Mediastinum: Large hiatal hernia consisting of a intrathoracic stomach. Vasculature: Atherosclerotic thoracic aorta. Severe atherosclerotic vascular disease. Bones/joints: Osteopenia. Moderate degenerative changes of the thoracolumbar spine including DISH. Thoracic dextrocurvature. Soft tissues: Breast attenuation artifact. IMPRESSION: 1. Large hiatal hernia consisting of a intrathoracic stomach. 2. No radiographically acute cardiopulmonary process.
[2024-06-07 19:10] VITALS: BP 158/70; PULSE 72; RESP 18; TEMP 37; O2SAT 97; BMI 19.5
--- NOTE | 2024-06-07 19:27 | CT_ITS ---
PROCEDURE INFORMATION: Exam: CT Chest Without Contrast; Diagnostic Exam date and time: 06/07/2024 7:54 PM Age: 84 years old Clinical indication: Other: Choked on apples TECHNIQUE: Imaging protocol: Diagnostic computed tomography of the chest without contrast. Total images: 352 Radiation optimization: All CT scans at this facility use at least one of these dose optimization techniques: automated exposure control; mA and/or kV adjustment per patient size (includes targeted exams where dose is matched to clinical indication); or iterative reconstruction. COMPARISON: CT CHEST WO CON 02/05/2024 11:51 AM FINDINGS: Thyroid: Atrophic thyroid gland. Lungs: The trachea and main bronchi are patent. Compressive atelectasis medial lung bases secondary to the large hernia. Lungs are otherwise clear and adequately expanded. Minor apical scarring. Pleural spaces: Unremarkable. No pneumothorax. No pleural effusion. Heart: Normal heart size. Extrinsic mass effect on posterior heart chambers. No pericardial effusion. Trace fluid in the superior pericardial recess is considered physiologic. Coronary arteries: Mild coronary artery calcifications. Esophagus: Mild gaseous distension proximal esophagus. Lymph nodes: No mediastinal lymphadenopathy. Vasculature: Atherosclerotic thoracic aorta without aneurysm. Diaphragm: Large hiatal hernia consisting of a intrathoracic stomach. Large quantity ingested material within the intrathoracic stomach. Pancreas: 2.2 cm low-attenuation/cystic mass in the distal pancreatic tail, axial image 65 series 5. Adrenal glands: 11 mm fat attenuating left adrenal adenoma. Intestine: Colonic diverticulosis. Bones/joints: Osteopenia. 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 Increased thoracic kyphosis. Mild thoracic scoliosis. Soft tissues: Unremarkable. IMPRESSION: 1. Large hiatal hernia consisting of a intrathoracic stomach. 2. Large quantity recently ingested material within the intrathoracic stomach. 3. Mass effect on posterior heart chamber secondary to the intrathoracic stomach 4. Lungs are clear with compressive atelectasis medial lung bases. 5. 2.2 cm low-attenuation/cystic mass in the distal pancreatic tail. Recommend follow-up nonemergent pancreatic MRI. 6. 11 mm lipid rich left adrenal adenoma 7. Additional chronic and incidental findings. COMMENTS: Consistent with the [employer]'s Incidental Findings Committee white paper (J Am Sonia Radiol 2017): For any incidental adrenal lesion greater than or equal to 1 cm but less than or equal to 4 cm classified in this report as benign, likely benign, or containing fat (including classification as an adenoma or myelolipoma), no follow-up imaging is recommended per consensus recommendations based on imaging criteria. Further lab evaluation could be pursued if warranted based on clinical findings.
[2024-06-07 19:30] VITALS: BP 150/76; PULSE 74; O2SAT 98
[2024-06-07 21:01] VITALS: BP 124/74; PULSE 74; RESP 14; TEMP 36.6; O2SAT 96
--- NOTE | 2024-06-07 21:03 | PC.NURSE ---
report called to marge from [facility] / [facility]
--- NOTE | 2024-06-07 21:08 | PC.NURSE ---
Called the ambulance service for transport back to [facility].
--- NOTE | 2024-06-07 22:30 | PC.NURSE ---
rounded on patient, lights turned off and patient given a pillow for comfort
--- NOTE | 2024-06-07 23:30 | PC.NURSE ---
rounded on patient, patient sleeping, call light within reach. patient waiting to be transferred back to [facility]
== END 2024-06-08 00:14 ==
PROVIDERS: Emergency Provider Emergency Medicine
DX: R11.10 Vomiting, unspecified (principal); K86.89 Other specified diseases of pancreas
CPT/HCPCS: 71046; 71250; 99284